=== PATIENT | female | born 2000 | race Two or more races ===

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

== ENCOUNTER → 2020-03-27 | Outpatient (CLI) | payer BC ==
[2020-03-27 14:10] LABS: Basophils # (auto) 0 10 ^3/uL (0-0.2); Basophils % (auto) 0.6 % (0.0-2.0); Eosinophils # (auto) 0.1 10 ^3/uL (0-0.8); Eosinophils % (auto) 1.9 % (0.0-7.0); Hematocrit 39.5 % (36.0-46.0); Hemoglobin 12.8 g/dL (12.2-16.2); Lymphocytes % (auto) 28.6 % (10.0-50.0); Mean Corpuscular Hemoglobin 28.6 pg (28.0-32.0); Mean Corpuscular Hgb Conc. 32.4 g/dL (32.0-36.0); Mean Corpuscular Volume 88.1 fL (80.0-100.0); Monocytes # (auto) 0.6 10 ^3/uL (0-1.3); Monocytes % (auto) 8.2 % (0.0-12.0); Neutrophils # (auto) 4.3 10 ^3/uL (1.6-8.6); Neutrophils % (auto) 60.7 % (37.0-80.0); Nucleated Red Blood Cells % 0.1 %; Platelet Count (auto) 235 10^3/uL (140-450); Red Blood Cells 4.48 10^6/uL (4.0-5.20); Red Cell Distribution Width 14.4 % (11.8-14.3); White Blood Cell 7.1 10^3/uL (4.4-10.8)
[2020-03-27 14:42] LABS: Calcium 8.3 mg/dL (8.5-10.1)
[2020-03-27 14:47] LABS: BUN/Creatinine Ratio 20.3; Bilirubin, Total 0.3 mg/dL (0.2-1.0); Total Protein 6.4 g/dL (6.4-8.2)
== END | disposition home or self-care (01) ==
LOC: LAB 13:54
PROVIDERS: ATTEND Physician Assistant
DX: Z01.89 Encounter for other specified special examinations (principal); L70.0 Acne vulgaris; R94.8 Abnormal results of function studies of other organs and systems; M92.51 Juvenile osteochondrosis of proximal tibia; E55.9 Vitamin D deficiency, unspecified; Z79.899 Other long term (current) drug therapy
CPT/HCPCS: 36415; 80053; 80061; 85025

== ENCOUNTER → 2021-11-20 | Outpatient (CLI) | payer BC | END | disposition home or self-care (01) | LOC: LAB 08:55 | PROVIDERS: ATTEND Obstetrics & Gynecology | DX: Z34.00 Encounter for supervision of normal first pregnancy, unspecified trimester (principal) | CPT/HCPCS: 36415; 84702 ==

== ENCOUNTER → 2021-12-20 | Outpatient (CLI) | payer BC ==
[2021-12-20 09:23] LABS: Basophils # (auto) 0 10 ^3/uL (0-0.2); Basophils % (auto) 0.6 % (0.0-2.0); Eosinophils # (auto) 0.1 10 ^3/uL (0-0.8); Eosinophils % (auto) 1.9 % (0.0-7.0); Hematocrit 40.5 % (36.0-46.0); Hemoglobin 13.2 g/dL (12.2-16.2); Lymphocytes # (auto) 2.1 10 ^3/uL (0.4-5.4); Mean Corpuscular Hemoglobin 28.5 pg (28.0-32.0); Mean Corpuscular Hgb Conc. 32.7 g/dL (32.0-36.0); Mean Corpuscular Volume 87.2 fL (80.0-100.0); Monocytes # (auto) 0.4 10 ^3/uL (0-1.3); Monocytes % (auto) 6.3 % (0.0-12.0); Neutrophils # (auto) 3.9 10 ^3/uL (1.6-8.6); Neutrophils % (auto) 59.2 % (37.0-80.0); Nucleated Red Blood Cells % 0.3 %; Red Blood Cells 4.65 10^6/uL (4.0-5.20); Red Cell Distribution Width 14.8 % (11.8-14.3); White Blood Cell 6.5 10^3/uL (4.4-10.8)
[2021-12-20 09:46] LABS: Cannabinoid Screen, Urine NEGATIVE (NEGATIVE)
[2021-12-20 09:49] LABS: Amphetamine Screen, Urine NEGATIVE (NEGATIVE); Barbiturate Scree,Urine NEGATIVE (NEGATIVE); Benzodiazephine Screen, Urine NEGATIVE (NEGATIVE); Cocaine Screen, Urine NEGATIVE (NEGATIVE); Opiate Scree,Urine NEGATIVE (NEGATIVE); Phencyclidine Screen, Urine NEGATIVE (NEGATIVE)
[2021-12-21 07:07] LABS: RPR Non Reactive (Non Reactive)
== END | disposition home or self-care (01) ==
LOC: LAB 08:42
PROVIDERS: ATTEND Obstetrics & Gynecology
DX: Z34.00 Encounter for supervision of normal first pregnancy, unspecified trimester (principal); Z31.430 Encounter of female for testing for genetic disease carrier status for procreative management; Z72.51 High risk heterosexual behavior
CPT/HCPCS: 36415; 80307; 83036; 84112; 84144; 84702; 85025; 86592; 86703; 86762; 86850; 86900; 86901; 87086; 87340

== ENCOUNTER → 2022-04-23 | Outpatient (CLI) | payer BC ==
[2022-04-23 07:04] LABS: Basophils # (auto) 0 10 ^3/uL (0-0.2); Basophils % (auto) 0.4 % (0.0-2.0); Eosinophils # (auto) 0.1 10 ^3/uL (0-0.8); Eosinophils % (auto) 1.7 % (0.0-7.0); Hematocrit 34.5 % (36.0-46.0); Hemoglobin 11.5 g/dL (12.2-16.2); Lymphocytes # (auto) 2.6 10 ^3/uL (0.4-5.4); Lymphocytes % (auto) 30.4 % (10.0-50.0); Mean Corpuscular Hgb Conc. 33.3 g/dL (32.0-36.0); Monocytes # (auto) 0.7 10 ^3/uL (0-1.3); Monocytes % (auto) 8.6 % (0.0-12.0); Neutrophils # (auto) 4.9 10 ^3/uL (1.6-8.6); Neutrophils % (auto) 58.9 % (37.0-80.0); Nucleated Red Blood Cells % 0.2 %; Red Blood Cells 3.83 10^6/uL (4.0-5.20); White Blood Cell 8.4 10^3/uL (4.4-10.8)
== END | disposition home or self-care (01) ==
LOC: LAB 06:33
PROVIDERS: ATTEND Obstetrics & Gynecology
DX: Z34.00 Encounter for supervision of normal first pregnancy, unspecified trimester (principal)
CPT/HCPCS: 36415; 82951; 85025

== ENCOUNTER 2022-06-20 16:45 | Observation (INO) | payer BC ==
[~2022-06-20] VITALS: Ht 165.1 cm; Wt 81.6 kg
[2022-06-20] MEDS ORDERED: LACTATED RINGER'S 1,000 ML IV ONE (17:45)
[2022-06-20] MEDS: TERBUTALINE SULFATE 1 MG/ML 1ML VIAL SC SCH ×3 (17:58→19:08)
[2022-06-20] MEDS ORDERED: NIFEdipine 10 MG CAP PO ONE (19:00)
[2022-06-20] MEDS ORDERED: PREN1TAB71 OR (19:47)
[2022-06-20] MEDS ORDERED: NIF10C PO (19:47)
== END 2022-06-20 20:07 | disposition home or self-care (01) ==
LOC: LDRP 16:45
PROVIDERS: ADMIT Obstetrics & Gynecology; ATTEND Obstetrics & Gynecology
DX: O62.9 Abnormality of forces of labor, unspecified (principal); O26.893 Other specified pregnancy related conditions, third trimester; N89.8 Other specified noninflammatory disorders of vagina; O24.419 Gestational diabetes mellitus in pregnancy, unspecified control; Z3A.35 35 weeks gestation of pregnancy; Z79.899 Other long term (current) drug therapy
CPT/HCPCS: 59025; 81002; 82948; 82962; 94760; 96360; 96372; G0378; J3105

== ENCOUNTER 2022-06-23 11:30 | Observation (INO) | payer BC ==
[~2022-06-23 11:30] MED LIST: NIF10C PO; PREN1TAB71 OR
== END 2022-06-23 13:32 | disposition home or self-care (01) ==
LOC: LDRP 11:30 → INTOOBSV 11:30
PROVIDERS: ADMIT Obstetrics & Gynecology; ATTEND Obstetrics & Gynecology
DX: O60.03 Preterm labor without delivery, third trimester (principal); O62.9 Abnormality of forces of labor, unspecified; O26.893 Other specified pregnancy related conditions, third trimester; R51.9 Headache, unspecified; N89.8 Other specified noninflammatory disorders of vagina; O24.419 Gestational diabetes mellitus in pregnancy, unspecified control; O99.891 Other specified diseases and conditions complicating pregnancy; M54.9 Dorsalgia, unspecified; Z3A.35 35 weeks gestation of pregnancy
CPT/HCPCS: 59025; 76818; 81002; 94760; G0378

== ENCOUNTER → 2022-06-25 | Outpatient (CLI) | payer BC ==
[2022-06-25 10:24] LABS: Basophils # (auto) 0 10 ^3/uL (0-0.2); Basophils % (auto) 0.4 % (0.0-2.0); Eosinophils # (auto) 0.1 10 ^3/uL (0-0.8); Eosinophils % (auto) 1.3 % (0.0-7.0); Hematocrit 38.6 % (36.0-46.0); Hemoglobin 12.4 g/dL (12.2-16.2); Lymphocytes # (auto) 2.2 10 ^3/uL (0.4-5.4); Lymphocytes % (auto) 32.5 % (10.0-50.0); Mean Corpuscular Hemoglobin 28.8 pg (28.0-32.0); Mean Corpuscular Hgb Conc. 32.2 g/dL (32.0-36.0); Mean Corpuscular Volume 89.5 fL (80.0-100.0); Monocytes # (auto) 0.6 10 ^3/uL (0-1.3); Monocytes % (auto) 8.8 % (0.0-12.0); Neutrophils # (auto) 3.8 10 ^3/uL (1.6-8.6); Nucleated Red Blood Cells % 0.1 %; Red Blood Cells 4.32 10^6/uL (4.0-5.20); Red Cell Distribution Width 14.7 % (11.8-14.3); White Blood Cell 6.7 10^3/uL (4.4-10.8)
[2022-06-26 06:15] LABS: RPR Non Reactive (Non Reactive)
== END | disposition home or self-care (01) ==
LOC: LAB 09:52
PROVIDERS: ATTEND Obstetrics & Gynecology
DX: Z34.00 Encounter for supervision of normal first pregnancy, unspecified trimester (principal); Z3A.00 Weeks of gestation of pregnancy not specified
CPT/HCPCS: 36415; 84112; 85025; 86592

== ENCOUNTER 2022-06-28 12:20 | Observation (INO) | payer BC ==
[2022-06-28] MEDS ORDERED: LACTATED RINGER'S 1,000 ML IV ONE (13:00)
[2022-06-28] MEDS: TERBUTALINE SULFATE 1 MG/ML 1ML VIAL SC SCH ×2 (13:13→13:55)
== END 2022-06-28 14:45 | disposition home or self-care (01) ==
LOC: UNDOADMOB 12:20 → LDRP 12:20
PROVIDERS: ADMIT Obstetrics & Gynecology; ATTEND Obstetrics & Gynecology
DX: O24.419 Gestational diabetes mellitus in pregnancy, unspecified control (principal); O62.9 Abnormality of forces of labor, unspecified; Z3A.36 36 weeks gestation of pregnancy
CPT/HCPCS: 59025; 81002; 82962; 94760; 96360; 96372; G0378; J3105; 96361

== ENCOUNTER 2022-06-30 19:02 | Observation (INO) | payer BC ==
[~2022-06-30] VITALS: Ht 165.1 cm; Wt 83.9 kg
== END 2022-06-30 21:19 | disposition home or self-care (01) ==
LOC: LDRP 19:02
PROVIDERS: ADMIT Obstetrics & Gynecology; ATTEND Obstetrics & Gynecology
DX: O24.419 Gestational diabetes mellitus in pregnancy, unspecified control (principal); O60.03 Preterm labor without delivery, third trimester; O42.913 Preterm premature rupture of membranes, unspecified as to length of time between rupture and onset of labor, third trimester; O26.893 Other specified pregnancy related conditions, third trimester; R51.9 Headache, unspecified; Z3A.36 36 weeks gestation of pregnancy
CPT/HCPCS: 59025; 76818; 81002; 82962; 94760; G0378

== ENCOUNTER 2022-07-04 08:04 | Observation (INO) | payer BC ==
[~2022-07-04] VITALS: Ht 165.1 cm; Wt 83.9 kg
== END 2022-07-04 09:57 | disposition home or self-care (01) ==
LOC: UNDOADMOB 08:04 → LDRP 08:04 → UNDODISOB 09:57
PROVIDERS: ADMIT Obstetrics & Gynecology; ATTEND Obstetrics & Gynecology
DX: O24.419 Gestational diabetes mellitus in pregnancy, unspecified control (principal); Z3A.37 37 weeks gestation of pregnancy
CPT/HCPCS: 59025; 76818; 81002; 82948; 82962; 94760; G0378

== ENCOUNTER 2022-07-07 18:15 | Observation (INO) | payer BC | END 2022-07-07 21:30 | disposition home or self-care (01) | LOC: LDRP 18:15 | PROVIDERS: ADMIT Obstetrics & Gynecology; ATTEND Obstetrics & Gynecology | DX: O99.891 Other specified diseases and conditions complicating pregnancy (principal); M54.9 Dorsalgia, unspecified; O42.92 Full-term premature rupture of membranes, unspecified as to length of time between rupture and onset of labor; Z3A.37 37 weeks gestation of pregnancy; Z79.899 Other long term (current) drug therapy | CPT/HCPCS: 59025; 81002; 82962; 84112; 94762; G0378; Q0114 ==

== ENCOUNTER 2022-07-09 09:02 | Observation (INO) | payer BC ==
[~2022-07-09] VITALS: Ht 165.1 cm; Wt 85.3 kg
[~2022-07-09 09:02] MED LIST changes: -NIF10C PO
== END 2022-07-09 12:07 | disposition home or self-care (01) ==
LOC: LDRP 09:02 → UNDOADMOB 09:02 → LDRP 09:17 → UNDODISOB 12:07
PROVIDERS: ADMIT Obstetrics & Gynecology; ATTEND Obstetrics & Gynecology
DX: O24.419 Gestational diabetes mellitus in pregnancy, unspecified control (principal); O62.9 Abnormality of forces of labor, unspecified; Z3A.38 38 weeks gestation of pregnancy; Z79.899 Other long term (current) drug therapy
CPT/HCPCS: 59025; 81002; 82948; 82962; 94760; G0378

== ENCOUNTER 2022-07-09 17:20 | Observation (INO) | payer BC ==
[~2022-07-09] VITALS: Ht 165 cm; Wt 65.8 kg
[2022-07-09] MEDS ORDERED: hydrOXYzine 25 MG TAB or CAP PO ONE (20:00)
== END 2022-07-09 22:44 | disposition home or self-care (01) ==
LOC: LDRP 17:20
PROVIDERS: ADMIT Obstetrics & Gynecology; ATTEND Obstetrics & Gynecology
DX: O62.9 Abnormality of forces of labor, unspecified (principal); Z3A.38 38 weeks gestation of pregnancy
CPT/HCPCS: 59025; 81002; 94762; G0378

== ENCOUNTER 2022-07-11 08:21 | Observation (INO) | payer BC | END 2022-07-11 09:44 | disposition home or self-care (01) | LOC: UNDOADMOB 08:21 → LDRP 08:21 | PROVIDERS: ADMIT Obstetrics & Gynecology; ATTEND Obstetrics & Gynecology | DX: O24.419 Gestational diabetes mellitus in pregnancy, unspecified control (principal); O62.9 Abnormality of forces of labor, unspecified; O34.63 Maternal care for abnormality of vagina, third trimester; N89.8 Other specified noninflammatory disorders of vagina; Z3A.38 38 weeks gestation of pregnancy | CPT/HCPCS: 59025; 76818; 81002; 82948; 82962; 94760; G0378 ==

== ENCOUNTER 2023-11-25 22:32 | Emergency (ER) | payer BC ==
[~2023-11-25] VITALS: Ht 165.1 cm; Wt 58.6 kg
[2023-11-25 23:12] LABS: Basophils # (auto) 0 10 ^3/uL (0-0.2); Basophils % (auto) 0.1 % (0.0-2.0); Eosinophils # (auto) 0.2 10 ^3/uL (0-0.8); Eosinophils % (auto) 2.1 % (0.0-7.0); Hematocrit 41.9 % (36.0-46.0); Hemoglobin 13.5 g/dL (12.2-16.2); Lymphocytes # (auto) 3.6 10 ^3/uL (0.4-5.4); Lymphocytes % (auto) 36.1 % (10.0-50.0); Mean Corpuscular Hemoglobin 28.7 pg (28.0-32.0); Mean Corpuscular Hgb Conc. 32.2 g/dL (32.0-36.0); Mean Corpuscular Volume 89.1 fL (80.0-100.0); Monocytes # (auto) 0.6 10 ^3/uL (0-1.3); Monocytes % (auto) 6.5 % (0.0-12.0); Neutrophils # (auto) 5.5 10 ^3/uL (1.6-8.6); Neutrophils % (auto) 55.2 % (37.0-80.0); Nucleated Red Blood Cells % 0.1 %; Red Blood Cells 4.71 10^6/uL (4.0-5.20); Red Cell Distribution Width 14.1 % (11.8-14.3); White Blood Cell 9.9 10^3/uL (4.4-10.8)
[2023-11-25 23:23] LABS: Urine Bacteria NONE SEEN /hpf (None Seen); Urine Blood Negative /uL (Negative); Urine Clarity Clear (Clear); Urine Color Yellow (Yellow); Urine Mucus FEW (None Seen); Urine Protein, UAD TRACE (Negative); Urine Specific Gravity 1.032 (1.001-1.035); Urine Urobilinogen Normal (Negative); Urine WBC <1 /hpf (0 - 5)
[2023-11-25 23:31] LABS: Albumin 4.2 g/dL (3.2-4.8); Alkaline Phosphatase 97 U/L (46-116); Anion Gap 6 (5-15); Aspartate Aminotransferase 12 U/L (13-40); BUN/Creatinine Ratio 21.9 (10.0-20.0); Blood Urea Nitrogen 14 mg/dL (9-23); Calcium 9.1 mg/dL (8.5-10.1); Carbon Dioxide 27 mmol/L (20-30); Chloride 109 mmol/L (98-107); Glucose 103 mg/dL (74-106); Potassium 3.9 mmol/L (3.5-5.1); Sodium 142 mmol/L (136-145)
[2023-11-25 23:32] LABS: Alanine Aminotransferase < 9 U/L (7-40); Bilirubin, Total 0.2 mg/dL (0.2-1.0); Total Protein 6.3 g/dL (5.7-8.2)
[2023-11-25 23:46] LABS: Lipase 35 U/L (12-53)
[2023-11-25] MEDS ORDERED: LOPE1TAB9 PO (23:49)
[2023-11-25] MEDS ORDERED: ZOFR4T PO (23:49)
[2023-11-26 00:05] VITALS: BP 128/61; PULSE 76; RESP 15; TEMP 98.3; O2SAT 97
== END 2023-11-26 00:06 | disposition home or self-care (01) ==
LOC: ER 22:32
DX: K52.9 Noninfective gastroenteritis and colitis, unspecified (principal); Z79.899 Other long term (current) drug therapy
CPT/HCPCS: 36415; 80053; 81001; 81025; 83690; 85025

== ENCOUNTER → 2024-10-11 | Outpatient (CLI) | payer BC ==
[~2024-10-11] MED LIST changes: +LOPE1TAB9 PO; +ZOFR4T PO
[2024-10-11 11:27] LABS: Urine Bacteria FEW /hpf (None Seen); Urine Blood Negative /uL (Negative); Urine Clarity Turbid (Clear); Urine Color Colorless (Yellow); Urine Mucus FEW (None Seen); Urine Protein, UAD Negative (Negative); Urine Specific Gravity 1.019 (1.001-1.035); Urine Urobilinogen Normal (Negative); Urine WBC 21 /hpf (0 - 5); Urine pH 5.5 (5.0-9.0)
[2024-10-11 11:31] LABS: Basophils # (auto) 0 10 ^3/uL (0-0.2); Basophils % (auto) 0.5 % (0.0-2.0); Eosinophils # (auto) 0.2 10 ^3/uL (0-0.8); Hematocrit 39.9 % (36.0-46.0); Hemoglobin 13.3 g/dL (12.2-16.2); Mean Corpuscular Hgb Conc. 33.3 g/dL (32.0-36.0); Monocytes # (auto) 0.5 10 ^3/uL (0-1.3); Monocytes % (auto) 7.3 % (0.0-12.0); Neutrophils # (auto) 3.8 10 ^3/uL (1.6-8.6); Neutrophils % (auto) 58.2 % (37.0-80.0); Platelet Count (auto) 229 10^3/uL (140-450); Red Blood Cells 4.44 10^6/uL (4.0-5.20); Red Cell Distribution Width 13.3 % (11.8-14.3); White Blood Cell 6.5 10^3/uL (4.4-10.8)
[2024-10-11 11:41] LABS: Alanine Aminotransferase 12 U/L (7-40); Alkaline Phosphatase 87 U/L (46-116); Anion Gap 5 (5-15); BUN/Creatinine Ratio 22.4 (10.0-20.0); Blood Urea Nitrogen 13 mg/dL (9-23); Calcium 9.1 mg/dL (8.7-10.4); Carbon Dioxide 27 mmol/L (20-31); Chloride 107 mmol/L (98-107); Glucose 96 mg/dL (74-106); LDL Cholesterol 92 mg/dL (< 100); Potassium 4.2 mmol/L (3.5-5.1); Sodium 139 mmol/L (136-145); Triglycerides 66 mg/dL (< 150)
[2024-10-11 11:42] LABS: Albumin 3.8 g/dL (3.2-4.8); Aspartate Aminotransferase < 8 U/L (13-40); Bilirubin, Total 0.5 mg/dL (0.2-1.0); Cholesterol 143 mg/dL (< 200); HDL Cholesterol 47 mg/dL (40-59); Total Protein 5.8 g/dL (5.7-8.2)
== END | disposition home or self-care (01) ==
LOC: LAB 10:26
PROVIDERS: ATTEND Nurse Practitioner Family
DX: Z00.01 Encounter for general adult medical examination with abnormal findings (principal); I10 Essential (primary) hypertension; Z68.32 Body mass index [BMI] 32.0-32.9, adult
CPT/HCPCS: 36415; 80053; 80061; 81001; 82043; 83036; 84443; 85025

== ENCOUNTER 2024-11-28 21:09 | Emergency (ER) | payer BC ==
[~2024-11-28] VITALS: Ht 165.1 cm; Wt 72.7 kg
--- NOTE | 2024-11-28 21:29 | ED.PDOC ---
GI ASSESSMENT HPI Comments 24 y.o female presents to the ED for a chief complaint of lower abdominal pain associated with nausea that started today. Patient mentions finding out positive test at home one week ago. Patient reports pain is constant, non radiating and has no modifying factors. She denies any vaginal bleeding, discharge, fever, chills, vomiting, back pain, dysuria, or frequency. Patient declined any medications while at the facility. Time Seen by MD: 21:33 Primary Care Provider: JOSIE Reviewed Notes: Nurses Notes, Medications, Allergies Allergies: Coded Allergies: NO KNOWN ALLERGIES (Unverified , 07/04/22) Home Meds Active Scripts Loperamide HCl (Loperamide HCl) 2 Mg Tab, 2 MG PO QID PRN, #12 TAB Prov:VARINDER MURDOCK 11/25/23 Ondansetron Odt 4MG Tab (ZOFRAN PO) 4 Mg Tb, 4 MG PO TID PRN, #20 TAB ODT TAB-DISSOLVE IN MOUTH, THEN SWALLOW Prov:VARINDER MURDOCK 11/25/23 Reported Medications Vit W/ Ferrous Fumara (PNV PLUS MULTIVI) Plus Tab, 1 OR DAILY, TAB 06/20/22 Information Source: Patient Mode of Arrival: Ambulatory Timing: Days Duration: Since onset Quality: Aching Vomitus: None Stool: Normal Severity: Moderate Recent: None Recent Hx of: Current Pain Location: Suprapubic Modifying Factors: Nothing Associated sign and symptoms: Nausea, Abdominal Pain Past Medical History PAST MEDICAL HISTORY: Denies Surgical History: Denies all surgeries MATH TUTOR History: No Pertinent MATH TUTOR History Family History Family History: No family hx of DM Social History Smoker: Non-Smoker Alcohol: Denies ETOH Use Drugs: Denies Drug Use Lives In: Home Constitutional: denies: chills, diaphoresis, fatigue, fever, malaise, sweats, weakness, others EENTM: denies: blurred vision, double vision, ear bleeding, ear discharge, ear drainage, ear pain, ear ringing, eye pain, eye redness, hearing loss, mouth pain, mouth swelling, nasal discharge, nose bleeding, nose congestion, nose pain, photophobia, tearing, throat pain, throat swelling, voice changes, others Respiratory: denies: cough, hemoptysis, orthopnea, SOB at rest, shortness of breath, SOB with excertion, stridor, wheezing, others Cardiovascular: denies: chest pain, dizzy spells, diaphoresis, Dyspnea on exertion, edema, irregular heart beat, left arm pain, lightheadedness, palpitations, PND, syncope, others Gastrointestinal: reports: abdominal pain, nausea; denies: abdomen distended, blood streaked bowels, constipated, diarrhea, dysphagia, difficulty swallowing, hematemesis, melena, poor appetite, poor fluid intake, rectal bleeding, rectal pain, vomiting, others Genitourinary: reports: ; denies: abnormal vagina bleeding, burning, dyspareunia, dysuria, flank pain, frequency, hematuria, incontinence, pain, vagina discharge, urgency, others Neurological: denies: dizziness, fainting, headache, left sided numbness, left sided weakness, numbness, paresthesia, pre-existing deficit, right sided numbness, right sided weakness, seizure, speech problems, tingling, tremors, weakness, others Musculoskeletal: denies: back pain, gout, joint pain, joint swelling, muscle pain, muscle stiffness, neck pain, others Integumetry: denies: bruises, change in color, change in hair/nails, dryness, laceration, lesions, lumps, rash, wounds, others Allergic/Immunocompromised: denies: Difficulty Healing, Frequent Infections, Hives, Itching, others Hematologic/Lymphatic: denies: anemia, blood clots, easy bleeding, easy bruising, swollen glands, others Endocrine: denies: excessive hunger, excessive sweating, excessive thirst, excessive urination, flushing, intolerance to cold, intolerance to heat, unexplained weight gain, unexplained weight loss, others Psychiatric: denies: anxiety, bipolar disorder, depression, hopeless, panic disorder, schizophrenia, sleepless, suicidal, others All Other Systems: Reviewed and Negative Physical Exam General Appearance: Moderate Distress (Symr-yi-[id number] distress due to pelvic pain concerns.), Normal HEENT: Normal ENT Inspection, Pharynx Normal, TMs Normal Neck: Full Range of Motion, Non-Tender, Normal, Normal Inspection Respiratory: Chest Non-Tender, Lungs Clear, No Accessory Muscle Use, No Respiratory Distress, Normal Breath Sounds Cardiovascular: No Edema, No JVD, No Murmur, No Gallop, Normal Peripheral Pulses, Regular Rate/Rhythm Breast Exam: Deferred Gastrointestinal: Other (Diffuse bilateral pelvic tenderness to palpation. No signs of trauma. No pulsatile masses. Abdomen was reasonably soft. Mild suprapubic tenderness.) Genitalia: Deferred Pelvic: Deferred Rectal: Deferred Extremities: No calf tenderness, Normal capillary refill, Normal inspection, Normal range of motion, Non-tender, No pedal edema Neurologic: Alert, No Motor Deficits, Normal Affect, Normal Mood, No Sensory Deficits Cerebellar Function: Normal Reflexes: Normal Skin: Dry, Normal Color, Warm Lymphatic: No Adenopathy Was a procedure done? Was a procedure done?: No GI differential Dx Differential Diagnosis: Inevitable , Missed , Threatened , UTI, X-Ray, Labs, Meds, VS Vital Signs Date Time Temp Pulse Resp B/P (MAP) Pulse Ox O2 Delivery O2 Flow Rate FiO2 11/28/24 21:13 97.6 89 18 129/83 (98) 99 Lab Test 11/28/24 21:47 11/28/24 21:20 Range/Units Beta HCG, Quantitative 1949.5 H 1.5-4.2 mIU/mL Urine Color Light-yellow Yellow Urine Clarity Turbid H Clear Urine pH 6.0 5.0-9.0 Urine Specific [place] 1.008 1.001-1.035 Urine Protein Negative Negative Urine Ketones Negative Negative Urine Blood Negative Negative /uL Urine Nitrite Negative Negative Urine Bilirubin Negative Negative Urine Urobilinogen Normal Negative mg/dL Urine Leukocyte Esterase 1+ Negative /uL Urine RBC <1 0 - 4 /hpf Urine WBC 4 0 - 5 /hpf Urine Squamous Epithelial Cells Few <5 /hpf Urine Bacteria Few H None Seen /hpf Urine Glucose Normal Normal mg/dL X-Ray, Labs, Meds, VS Comment All studies performed the ED were evaluated by me personally. Urinalysis confirmed a UTI. Advised patient utilize antibiotics as directed until completion. Patient was given her 1st dose tonight prior to discharge. Advised patient to follow up with her director cardiac for management of her early . Time of 1ST Reevaluation: 22:50 Reevaluation 1ST: Unchanged Consultation: PCP, harp regulator Patient Education/Counseling: Diagnosis, Treatment, Prognosis Family Education/Counseling: Diagnosis, Treatment, No Family Present Departure 1 Departure Time of Disposition: 22:51 Impression: Primary Impression: Urinary tract infection Disposition: 01 HOME / SELF CARE / HOMELESS Condition: Stable Additional Instructions: Advise utilizing antibiotics as directed until completion as well as Tylenol as needed for pain relief. e-Prescriptions Cephalexin (KEFLEX CAPSULE) 250 Mg Cp 1 CAP PO QID for 5 Days, #20 CAP Prov: DAYNA AYALA PAC 11/28/24 Ondansetron Odt 4MG Tab (ZOFRAN PO) 4 Mg Tb 4 MG PO Q6HP PRN, #20 TAB ODT TAB-DISSOLVE IN MOUTH, THEN SWALLOW Prov: DAYNA AYALA PAC 11/28/24 Acetaminophen (Acetaminophen) 500 Mg Tab 500 MG PO Q4HP PRN, #60 TAB Prov: DAYNA AYALA PAC 11/28/24 Cephalexin (KEFLEX CAPSULE) 250 Mg Cp 1 CAP PO QID for 5 Days, #20 CAP Prov: DAYNA AYALA PAC 11/28/24 Discharged With: Self, Friend Critical Care Note Critical Care Time?: No Stability Stability form required: No I personally scribed for DAYNA AYALA PAC ([email or web address]) on 11/28/24 at 21:28. Electronically submitted by Carisa Ventura ([facility]). I personally scribed for DAYNA AYALA PAC ([email or web address]) on 11/28/24 at 21:30. Electronically submitted by Carisa Ventura ([facility]). DAYNA AYALA PAC Nov 28, 2024 21:28
[2024-11-28 22:09] LABS: Urine Bacteria FEW /hpf (None Seen); Urine Blood Negative /uL (Negative); Urine Clarity Turbid (Clear); Urine Color Light-Yellow (Yellow); Urine Protein, UAD Negative (Negative); Urine Specific Gravity 1.008 (1.001-1.035); Urine Squamous Epithelial Cell FEW /hpf (<5); Urine Urobilinogen Normal (Negative); Urine WBC 4 /hpf (0 - 5)
[2024-11-28] MEDS ORDERED: CEPH250C PO (22:52)
[2024-11-28] MEDS ORDERED: ACET500T58 PO (22:53)
[2024-11-28] MEDS ORDERED: ZOFR4T PO (22:53)
[2024-11-28] MEDS: CEPHALEXIN 250 MG CAP PO ONE (23:01)
[2024-11-28 23:03] VITALS: BP 147/74; PULSE 83; RESP 19; TEMP 99.4; O2SAT 99
== END 2024-11-28 23:08 | disposition home or self-care (01) ==
LOC: ER 21:09 → EEVIPCON 21:09 → ER 23:06
DX: N39.0 Urinary tract infection, site not specified (principal); Z79.899 Other long term (current) drug therapy
CPT/HCPCS: 36415; 81001; 84702

== ENCOUNTER → 2024-12-01 | Outpatient (CLI) | payer BC ==
[~2024-12-01] MED LIST changes: +ACET500T58 PO; +CEPH250C PO
== END | disposition home or self-care (01) ==
LOC: LAB 09:20
PROVIDERS: ATTEND Obstetrics & Gynecology
DX: Z34.80 Encounter for supervision of other normal pregnancy, unspecified trimester (principal)
CPT/HCPCS: 36415; 84144; 84702

== ENCOUNTER → 2024-12-06 | Outpatient (CLI) | payer BC | END | disposition home or self-care (01) | LOC: LAB 11:23 | PROVIDERS: ATTEND Obstetrics & Gynecology | DX: Z34.80 Encounter for supervision of other normal pregnancy, unspecified trimester (principal); Z3A.13 13 weeks gestation of pregnancy | CPT/HCPCS: 36415; 84144; 84702 ==

== ENCOUNTER 2024-12-21 21:16 | Emergency (ER) | payer BC ==
[~2024-12-21] VITALS: Ht 165.1 cm; Wt 71.5 kg
[2024-12-21 22:16] VITALS: BP 113/68; PULSE 112; RESP 20; O2SAT 99
--- NOTE | 2024-12-21 22:36 | ED.PDOC ---
NEON GLASS [facility]OWER HPI Comments HPI: HPI: Poor Historian. 24y F who presents to the ED for chief complaint of nausea and vomiting nonbilious nonbloody for two weeks. Pt has the following course of events: - pt is currently 8 weeks , and states she has been having increasing nausea and vomiting over the past 2 weeks -pt states since last night PM, she has started to see blood in vomit and came for further evaluation. Patient is holding a vomit bag. I evaluated the rabia nt and there is no evidence of hemorrhage. - pt states she has tried promethazine and Phenergan and various other OTC nausea and vomiting medications but states pt continues to have symptoms - pt denies any associated vaginal bleeding or any related symptoms Past medical history:denies Past surgical history: unknown Social history: denies tobacco use, denies ETOH use, denies drug use Medications: unknown Allergies: denies REVIEW OF SYSTEMS: CONSTITUTIONAL: Denies acute: fever, diaphoresis, chills, generalized weakness. HEAD: Denies acute: headache, photophobia Eyes: Denies acute: Double vision, vision loss, eye pain, eye discharge. EARS: Denies acute: tinnitus, hearing loss, ear discharge, ear pain, THROAT: Denies acute: sore throat, swelling, difficulty swallowing , pain with swallowing, change in voice. NECK: Denies acute: neck pain, neck swelling, stiff neck. HEART: Denies acute : chest pain, palpitations, LUNGS: Denies acute: SOB, wheezing, cough, hemoptysis ABDOMEN: Denies acute: abdominal pain, diarrhea, melena , hematemesis, hematochezia SKIN: Denies acute: rash, redness, lesions, itchiness. EXTREMITIES: Denies acute: calf pain, numbness, tingling, weakness, denies pain in extremity. Denies acute: Low back pain. Neuro: Denies acute: focal neurological deficit, motor or sensory focal neurological deficit, tremors, seizure like activity, confusion, dizziness, change in mental status, loss of bowel or bladder function, cauda equina like symptoms. : Denies acute: dysuria, hematuria, flank pain, increase in urinary frequency. PSYCH: Denies acute: hallucination, suicidal ideation, homicidal ideation. FEMALE: Denies acute: abnormal vaginal bleeding, foul odor, unusual discharge. PHYSICAL EXAM: General: Mild acute distress, awake and alert. Head: normocephalic, atraumatic. Neck: supple, trachea is midline, no swelling. Throat: Normal phonation. Eyes:, no erythema, no purulent discharge, no proptosis, no icterus. Heart: regular rate, regular rhythm, no significant murmur appreciated. Lungs: no apparent respiratory distress, Able to speak in full sentences. No wheezing, no rhonchi, no crackles. No stridors Clear to auscultation bilaterally. Abdomen: non tender to palpation, non distended, soft, no guarding, no rebound, + bowel sounds. Neuro: Awake, Alert, oriented to name, self, situation, follows commands GCS=15. Speech is normal. Skin: no petechia, no purpura, no cyanosis, non-pale, not jaundice. Lower extremities: --no - Pitting edema no deformity, no focal swelling, no calf TTP. Makes eye contact. moves all four extremities. Face: no apparent facial droop. Ambulating in the ED independently. Chief Complaint: Nausea/Vomiting Time Seen by MD: 22:35 Reviewed Notes: Nurses Notes, Medications Allergies: Coded Allergies: NO KNOWN ALLERGIES (Unverified , 07/04/22) Home Meds Active Scripts Ondansetron Odt 4MG Tab (ZOFRAN PO) 4 Mg Tb, 4 MG PO Q8HPRN PRN for 3 Days, #9 TAB ODT TAB-DISSOLVE IN MOUTH, THEN SWALLOW Prov:VEE HENDERSON DO 12/22/24 Cephalexin Monohydrate (Cephalexin) 500 Mg Cap, 500 MG PO Q8HR for 5 Days, #15 CAP Prov:VEE HENDERSON DO 12/22/24 Cephalexin (KEFLEX CAPSULE) 250 Mg Cp, 1 CAP PO QID for 5 Days, #20 CAP Prov:DAYNA AYALA PAC 11/28/24 Ondansetron Odt 4MG Tab (ZOFRAN PO) 4 Mg Tb, 4 MG PO Q6HP PRN, #20 TAB ODT TAB-DISSOLVE IN MOUTH, THEN SWALLOW Prov:DAYNA AYALA PAC 11/28/24 Acetaminophen (Acetaminophen) 500 Mg Tab, 500 MG PO Q4HP PRN, #60 TAB Prov:DAYNA AYALA PAC 11/28/24 Cephalexin (KEFLEX CAPSULE) 250 Mg Cp, 1 CAP PO QID for 5 Days, #20 CAP Prov:DAYNA AYALA PAC 11/28/24 Loperamide HCl (Loperamide HCl) 2 Mg Tab, 2 MG PO QID PRN, #12 TAB Prov:VARINDER MURDOCK GROCERY DEPARTMENT MANAGER 11/25/23 Ondansetron Odt 4MG Tab (ZOFRAN PO) 4 Mg Tb, 4 MG PO TID PRN, #20 TAB ODT TAB-DISSOLVE IN MOUTH, THEN SWALLOW Prov:VARINDER MURDOCK GROCERY DEPARTMENT MANAGER 11/25/23 Reported Medications Vit W/ Ferrous Fumara (PNV PLUS MULTIVI) Plus Tab, 1 OR DAILY, TAB 06/20/22 Information Source: Patient Mode of Arrival: Ambulatory Brought in by: self Past Medical History PAST MEDICAL HISTORY: Denies Surgical History: Denies all surgeries BATTALION FIRE CHIEF History: No Pertinent BATTALION FIRE CHIEF History Family History Family History: No family hx of DM Social History Smoker: Non-Smoker Alcohol: Denies ETOH Use Drugs: Denies Drug Use Lives In: Home Was a procedure done? Was a procedure done?: No Differential Diagnosis (BATTALION FIRE CHIEF) Vaginal Bleeding: N/A Mass / Lesion: N/A Vaginal Discharge: N/A Comments Hyperemesis gravidarum, electrolyte abnormality, UTI, dehydration, infection X-Ray, Labs, Meds, VS Vital Signs Date Time Temp Pulse Resp B/P (MAP) Pulse Ox O2 Delivery O2 Flow Rate FiO2 12/21/24 22:16 98.0 112 20 113/68 (83) 99 Lab Test 12/21/24 22:46 12/21/24 22:10 Range/Units White Blood Count 11.3 H 4.4-10.8 10^3/uL Red Blood Count 4.93 4.0-5.20 10^6/uL Hemoglobin 14.6 12.2-16.2 g/dL Hematocrit 43.6 36.0-46.0 % Mean Corpuscular Volume 88.3 80.0-100.0 fL Mean Corpuscular Hemoglobin 29.5 28.0-32.0 pg Mean Corpuscular Hemoglobin Concent 33.4 32.0-36.0 g/dL Red Cell Distribution Width 13.3 11.8-14.3 % Platelet Count 261 140-450 10^3/uL Mean Platelet Volume 9.3 6.9-10.8 fL Neutrophils (%) (Auto) 81.9 H 37.0-80.0 % Lymphocytes (%) (Auto) 13.3 10.0-50.0 % Monocytes (%) (Auto) 4.2 0.0-12.0 % Eosinophils (%) (Auto) 0.1 0.0-7.0 % Basophils (%) (Auto) 0.5 0.0-2.0 % Neutrophils # (Auto) 9.3 H 1.6-8.6 10 ^3/uL Lymphocytes # (Auto) 1.5 0.4-5.4 10 ^3/uL Monocytes # (Auto) 0.5 0-1.3 10 ^3/uL Eosinophils # (Auto) 0 0-0.8 10 ^3/uL Basophils # (Auto) 0.1 0-0.2 10 ^3/uL Nucleated Red Blood Cells 0.1 % Sodium Level 136 136-145 mmol/L Potassium Level 3.9 3.5-5.1 mmol/L Chloride Level 99 98-107 mmol/L Carbon Dioxide Level 27 20-31 mmol/L Anion Gap 10 5-15 Blood Urea Nitrogen 9 9-23 mg/dL Creatinine 0.55 0.550-1.02 mg/dL Glomerular Filtration Rate Calc 130 >90 mL/min BUN/Creatinine Ratio 16.4 10.0-20.0 Serum Glucose 107 H 74-106 mg/dL Calcium Level 10.2 8.7-10.4 mg/dL Magnesium Level 2.1 1.6-2.6 mg/dL Total Bilirubin 0.4 0.2-1.0 mg/dL Aspartate Amino Transferase (AST) 13 13-40 U/L Alanine Aminotransferase (ALT) 17 7-40 U/L Alkaline Phosphatase 83 46-116 U/L Total Protein 7.1 5.7-8.2 g/dL Albumin 4.4 3.2-4.8 g/dL Urine Color Yellow Yellow Urine Clarity Turbid H Clear Urine pH 7.0 5.0-9.0 Urine Specific [place] 1.026 1.001-1.035 Urine Protein 1+ H Negative Urine Ketones 4+ H Negative Urine Blood Negative Negative /uL Urine Nitrite Negative Negative Urine Bilirubin Negative Negative Urine Urobilinogen Normal Negative mg/dL Urine Leukocyte Esterase 2+ Negative /uL Urine RBC 3 0 - 4 /hpf Urine Microscopic WBC 14 H 0-5 /HPF Urine Squamous Epithelial Cells Many <5 /hpf Urine Bacteria Many H None Seen /hpf Urine Mucus Few None Seen Urine Glucose Normal Normal mg/dL Time of 1ST Reevaluation: 03:15 (Patient eloped) Reevaluation 1ST: Patient Education/Counseling: Other Family Education/Counseling: No Family Present Comments Patient presented with the above HPI.---nausea and vomiting in ---workup was initiated. patient was found with the above mentioned diagnosis. the following medications were ordered: please refer to order lists of meds and tests obtained by myself Dr. Henderson. Patient ED course and VS have been stabilized. Patient has been reassessed in the ED and remained in a stable condition. Escalation of care considered: Consideration of escalation to observation or admission Patient eloped All the reports of any imaging studies that were ordered by myself were reviewed by myself. Departure 1 Departure Time of Disposition: 01:09 Impression: Primary Impression: UTI in Additional Impression: Nausea and vomiting during Disposition: LEFT AWOL/ELOPED Condition: Stable Additional Instructions: Patient eloped Additional discharge instructions: You MUST follow-up with your primary care/family doctor in 1 to 2 days. If you are unable to see your primary care/family doctor, please return to our emergency room for re-assessment and re-evaluation in 1 to 2 days. Return to the emergency room here in our facility or to the nearest ER [facility] if your symptoms change or worsen. CONSULTATIONS: you MUST Follow-up for consultation as soon as possible with: Dr. CARLIN Baron doctor in 1-2 days. Please call for appointment You MUST call the consultants office yourself to make an appointment. You may need to arrange that through your insurance and/or your primary/family doctor. If you are unable to see the excellence consultant in 1 to 2 days, you must return to our emergency room (or any other ER of your choice) for re-assessment and re- evaluation. Adequate fluid hydration. e-Prescriptions Ondansetron Odt 4MG Tab (ZOFRAN PO) 4 Mg Tb 4 MG PO Q8HPRN PRN for 3 Days, #9 TAB ODT TAB-DISSOLVE IN MOUTH, THEN SWALLOW Prov: VEE HENDERSON DO 12/22/24 Cephalexin Monohydrate (Cephalexin) 500 Mg Cap 500 MG PO Q8HR for 5 Days, #15 CAP Prov: VEE HENDERSON DO 12/22/24 Discharged With: Self Critical Care Note Critical Care Time?: No I personally scribed for VEE HENDERSON DO ([email or web address]) on 12/21/24 at 22:36. Electronically submitted by Salvatore Crespo ([facility]). VEE HENDERSON DO Dec 21, 2024 22:36
[2024-12-21] MEDS ORDERED: SODIUM CHLORIDE 0.9% 1,000 ML IV ONE (22:45)
[2024-12-21] MEDS ORDERED: ONDANSETRON HCL 4 MG/2 ML VIAL IV ONE (22:45)
[2024-12-21 23:09] LABS: Basophils # (auto) 0.1 10 ^3/uL (0-0.2); Basophils % (auto) 0.5 % (0.0-2.0); Eosinophils # (auto) 0 10 ^3/uL (0-0.8); Eosinophils % (auto) 0.1 % (0.0-7.0); Hematocrit 43.6 % (36.0-46.0); Hemoglobin 14.6 g/dL (12.2-16.2); Lymphocytes # (auto) 1.5 10 ^3/uL (0.4-5.4); Lymphocytes % (auto) 13.3 % (10.0-50.0); Mean Corpuscular Hemoglobin 29.5 pg (28.0-32.0); Mean Corpuscular Hgb Conc. 33.4 g/dL (32.0-36.0); Mean Corpuscular Volume 88.3 fL (80.0-100.0); Monocytes # (auto) 0.5 10 ^3/uL (0-1.3); Monocytes % (auto) 4.2 % (0.0-12.0); Neutrophils # (auto) 9.3 10 ^3/uL (1.6-8.6); Neutrophils % (auto) 81.9 % (37.0-80.0); Nucleated Red Blood Cells % 0.1 %; Platelet Count (auto) 261 10^3/uL (140-450); Red Blood Cells 4.93 10^6/uL (4.0-5.20); Red Cell Distribution Width 13.3 % (11.8-14.3); White Blood Cell 11.3 10^3/uL (4.4-10.8)
[2024-12-21 23:20] LABS: Alanine Aminotransferase 17 U/L (7-40); Albumin 4.4 g/dL (3.2-4.8); Alkaline Phosphatase 83 U/L (46-116); Anion Gap 10 (5-15); BUN/Creatinine Ratio 16.4 (10.0-20.0); Bilirubin, Total 0.4 mg/dL (0.2-1.0); Blood Urea Nitrogen 9 mg/dL (9-23); Calcium 10.2 mg/dL (8.7-10.4); Carbon Dioxide 27 mmol/L (20-31); Chloride 99 mmol/L (98-107); Magnesium 2.1 mg/dL (1.6-2.6); Potassium 3.9 mmol/L (3.5-5.1); Sodium 136 mmol/L (136-145); Total Protein 7.1 g/dL (5.7-8.2)
[2024-12-21 23:23] LABS: Aspartate Aminotransferase 13 U/L (13-40); Glucose 107 mg/dL (74-106)
[2024-12-22 00:50] LABS: Urine Bacteria MANY /hpf (None Seen); Urine Blood Negative /uL (Negative); Urine Clarity Turbid (Clear); Urine Color Yellow (Yellow); Urine Mucus FEW (None Seen); Urine Protein, UAD 1+ (Negative); Urine Specific Gravity 1.026 (1.001-1.035); Urine Squamous Epithelial Cell MANY /hpf (<5); Urine Urobilinogen Normal (Negative); Urine WBC 14 /HPF (0-5)
[2024-12-22] MEDS ORDERED: CEPH500C PO (01:10)
[2024-12-22] MEDS ORDERED: ZOFR4T PO (01:11)
[2024-12-22] MEDS ORDERED: cefTRIAXone 1GM/50ML D5W 50 ML IV ONE (01:15)
== END 2024-12-22 03:06 | disposition left against medical advice (07) ==
LOC: ER 21:16
DX: O23.41 Unspecified infection of urinary tract in pregnancy, first trimester (principal); N39.0 Urinary tract infection, site not specified; O21.8 Other vomiting complicating pregnancy; O21.1 Hyperemesis gravidarum with metabolic disturbance; Z3A.08 8 weeks gestation of pregnancy
CPT/HCPCS: 36415; 80053; 81001; 83735; 85025; 87086

== ENCOUNTER → 2025-01-19 | Outpatient (CLI) | payer BC ==
[~2025-01-19] MED LIST changes: +CEPH500C PO
[2025-01-19 10:17] LABS: Basophils # (auto) 0 10 ^3/uL (0-0.2); Basophils % (auto) 0.5 % (0.0-2.0); Eosinophils # (auto) 0.1 10 ^3/uL (0-0.8); Eosinophils % (auto) 1.6 % (0.0-7.0); Hematocrit 39.5 % (36.0-46.0); Hemoglobin 13.5 g/dL (12.2-16.2); Lymphocytes # (auto) 1.8 10 ^3/uL (0.4-5.4); Lymphocytes % (auto) 22.1 % (10.0-50.0); Mean Corpuscular Hemoglobin 29.9 pg (28.0-32.0); Mean Corpuscular Hgb Conc. 34.2 g/dL (32.0-36.0); Mean Corpuscular Volume 87.5 fL (80.0-100.0); Monocytes # (auto) 0.4 10 ^3/uL (0-1.3); Monocytes % (auto) 5.5 % (0.0-12.0); Neutrophils # (auto) 5.7 10 ^3/uL (1.6-8.6); Neutrophils % (auto) 70.3 % (37.0-80.0); Platelet Count (auto) 239 10^3/uL (140-450); Red Blood Cells 4.51 10^6/uL (4.0-5.20); White Blood Cell 8.1 10^3/uL (4.4-10.8)
[2025-01-20 06:07] LABS: RPR Non Reactive (Non Reactive)
[2025-01-20 23:07] LABS: Chlamydia Trachomatis, NAA Negative (Negative); Neisseria gonorrhoeae, NAA Negative (Negative)
== END | disposition home or self-care (01) ==
LOC: LAB 09:46
PROVIDERS: ATTEND Obstetrics & Gynecology
DX: Z34.80 Encounter for supervision of other normal pregnancy, unspecified trimester (principal); Z72.51 High risk heterosexual behavior; Z3A.00 Weeks of gestation of pregnancy not specified
CPT/HCPCS: 36415; 83036; 84144; 84702; 85025; 86592; 86703; 86762; 86850; 86900; 86901; 87086; 87340

== ENCOUNTER 2025-05-06 09:20 | Outpatient (CLI) | payer BC ==
[2025-05-06 09:47] LABS: Basophils # (auto) 0 10 ^3/uL (0-0.2); Eosinophils # (auto) 0.1 10 ^3/uL (0-0.8); Lymphocytes # (auto) 2.3 10 ^3/uL (0.4-5.4); Monocytes # (auto) 0.7 10 ^3/uL (0-1.3); Red Cell Distribution Width 15.3 % (11.8-14.3); White Blood Cell 8.8 10^3/uL (4.4-10.8)
[2025-05-06 09:49] LABS: Basophils % (auto) 0.3 % (0.0-2.0); Eosinophils % (auto) 1.6 % (0.0-7.0); Hemoglobin 10.1 g/dL (12.2-16.2); Lymphocytes % (auto) 26.3 % (10.0-50.0); Mean Corpuscular Hemoglobin 25.7 pg (28.0-32.0); Mean Corpuscular Hgb Conc. 32.5 g/dL (32.0-36.0); Mean Corpuscular Volume 79.2 fL (80.0-100.0); Monocytes % (auto) 7.4 % (0.0-12.0); Neutrophils # (auto) 5.6 10 ^3/uL (1.6-8.6); Neutrophils % (auto) 64.4 % (37.0-80.0); Platelet Count (auto) 238 10^3/uL (140-450); Red Blood Cells 3.91 10^6/uL (4.0-5.20)
== END 2025-05-06 17:00 | disposition home or self-care (01) ==
LOC: LAB 09:20
PROVIDERS: ATTEND Obstetrics & Gynecology
DX: Z34.81 Encounter for supervision of other normal pregnancy, first trimester (principal); Z3A.13 13 weeks gestation of pregnancy; Z79.899 Other long term (current) drug therapy
CPT/HCPCS: 36415; 82951; 83036; 85025

== ENCOUNTER 2025-05-30 12:22 | Observation (INO) | payer BC, OTHER ==
--- NOTE | 2025-05-30 22:48 | DVHDS2 ---
Discharge Summary Date of Admission May 30, 2025 at 12:31 Date of Discharge: May 30, 2025 Brief Hx & Hospital Course: 31 weeks numbs and tingling in hands Condition at Discharge: Good Final Diagnosis/Problems List 31 weeks reasuring heart tone and US Discharge Disposition: Home Discharge Instruct/Medications Diet: Regular Activity: No Restrictions, As Tolerated Follow Up/Referral: as scheduled. Scheduled Cephalexin (Keflex Capsule), 1 CAP PO QID Cephalexin (Keflex Capsule), 1 CAP PO QID Cephalexin Monohydrate (Cephalexin), 500 MG PO Q8HR Vit W/ Ferrous Fumara (Pnv Plus Multivi), 1 OR DAILY, (Reported) Scheduled PRN Acetaminophen (Acetaminophen), 500 MG PO Q4HP PRN Loperamide HCl (Loperamide HCl), 2 MG PO QID PRN Ondansetron Odt 4MG Tab (Zofran Po), 4 MG PO TID PRN Ondansetron Odt 4MG Tab (Zofran Po), 4 MG PO Q6HP PRN Ondansetron Odt 4MG Tab (Zofran Po), 4 MG PO Q8HPRN PRN Discharge Statement: "Patient was advised to return to the ER or call 911 if any headaches, dizziness, shortness of breath, chest pain, abdominal pain, bleeding, fevers, or worsening of medical condition. Patient was counseled about treatment plan, medications, possible side effects, patientverbalized understanding. All questions were answered to the best of my ability. This discharge took greater then 30 minutes in planning, reviewing documentation, counseling the patient, and discussing with other team members." ASSESSMENT ASSESSMENT Assessment Visit Coding OBGYN Date of Service: May 30, 2025 Billing Provider: DAGO GONZALEZ DO SHEET METAL ENGINEER Common Visit Codes: 76252-QZVOGPNPQY INP/OBS CARE(HIGH), 70765-MLV/OBS SAME DATE (LOW), 44496-YJX/OBS SAME DATE (MOD) SHEET METAL ENGINEER Procedure Codes: 80813-12- NON-STRESS TEST DAGO GONZALEZ DO May 30, 2025 22:48
== END 2025-05-30 13:35 | disposition home or self-care (01) ==
LOC: UNDOADMOB 12:22 → LDRP 12:22 → UNDODISOB 13:35
PROVIDERS: ADMIT Obstetrics & Gynecology; ATTEND Obstetrics & Gynecology
DX: O26.893 Other specified pregnancy related conditions, third trimester (principal); M79.89 Other specified soft tissue disorders; R20.2 Paresthesia of skin; Z3A.31 31 weeks gestation of pregnancy; Z79.899 Other long term (current) drug therapy
CPT/HCPCS: 59025; 81002; 94760; G0378

== ENCOUNTER 2025-06-09 05:37 | Observation (INO) | payer BC, OTHER ==
--- NOTE | 2025-06-09 11:13 | DVH ---
BIOPHYSICAL PROFILE HISTORY: macrosomia TECHNIQUE: Multiple transabdominal real-time grayscale sonographic images through the gravid uterus of the fetus with duplex Doppler color flow and M-mode spectral analysis FINDINGS: BIOPHYSICAL PROFILE: breathing score: 2 movement score: 2 tone score: 2 Quantitative EZEKIEL score: 2 (EZEKIEL: 16.8 Cm.) Total score: 8 The cervix not well visualized Single live fetus in cephalic presentation. heart rate 150 beats per minute. Grade 1 anterior placenta without previa or abruption IMPRESSION: Biophysical profile score: 8
--- NOTE | 2025-06-10 15:21 | DVHDS2 ---
Physician Discharge Progress N Final Diagnosis: Macrosomia 32wks Operations or Procedures: Operations or Procedures nst reactive reviwed,sono Condition on Discharge: Good Disposition: Home Discharge Instructions: Diet: Regular Activity: No Restrictions, As Tolerated Follow Up/Referral: Weekly NST Medications: na Follow Up Care: Specialist: 1w Discharge Statement: "Patient was advised to return to the ER or call 911 if any headaches, dizziness, shortness of breath, chest pain, abdominal pain, bleeding, fevers, or worsening of medical condition. Patient was counseled about treatment plan, medications, possible side effects, patientverbalized understanding. All questions were answered to the best of my ability. This discharge took greater then 30 minutes in planning, reviewing documentation, counseling the patient, and discussing with other team members." Visit Coding OBGYN Date of Service: Jun 09, 2025 Billing Provider: SANJUANITA HUTTON DO TELEVISION PRODUCTION TECHNICIAN Common Visit Codes: 67304-HEYOALN OBS CARE (HIGH) TELEVISION PRODUCTION TECHNICIAN Procedure Codes: 78404-30- NON-STRESS TEST SANJUANITA HUTTON DO Jun 10, 2025 15:21
== END 2025-06-09 11:30 | disposition home or self-care (01) ==
LOC: UNDOADMOB 10:08 → LDRP 10:08
PROVIDERS: ADMIT Obstetrics & Gynecology; ATTEND Obstetrics & Gynecology
DX: O36.63X0 Maternal care for excessive fetal growth, third trimester, not applicable or unspecified (principal); Z3A.32 32 weeks gestation of pregnancy; Z79.899 Other long term (current) drug therapy
CPT/HCPCS: 76818; 81002; G0378; 59025; 76819

== ENCOUNTER 2025-06-14 00:50 | Observation (INO) | payer BC, OTHER ==
[~2025-06-14] VITALS: Ht 165.1 cm; Wt 89.4 kg
--- NOTE | 2025-06-14 14:30 | DVH ---
BIOPHYSICAL PROFILE HISTORY: Macrosomia Comparison Study: US BIOPHYSICAL PROFILE on DOS: 06/09/25, BIOPHYSICAL PROFILE on DOS: 07/11/22, BPP on DOS: 07/11/22, BIOPHYSICAL PROFILE on DOS: 07/04/22, BIOPHYSICAL PROFILE on DOS: 06/30/22 TECHNIQUE: Multiple real-time grayscale sonographic images through the gravid uterus of the fetus wi th duplex Doppler color flow and M-mode spectral analysis FINDINGS: BIOPHYSICAL PROFILE: breathing score: 2 movement score: 2 tone score: 2 Quantitative EZEKIEL score: 2 (EZEKIEL: 18.5 Cm.) Total score: 8 The cervix is not visualied Single live fetus in cephalic presentation. heart rate 148 beats per minute. Anterior placenta without previa or abruption IMPRESSION: Biophysical profile score: 8
--- NOTE | 2025-06-14 14:36 | DVHDS2 ---
Physician Discharge Progress N Final Diagnosis: testing for macrosomia Operations or Procedures: Operations or Procedures 24yo IUP@33.1wks, +FM, denies Ucs/VB. Pt c/o itching all over her body, denies palms and soles of feet. Pt does not drink a lot of water because she does not want to keep peeing. VSS NST reactive RN reports no bumps or rash on pts skin FKC/PTL precautions reviewed. Recommended oatmeal bath and coconut oil on skin after and to drink 1 gallon of water daily. Other Interventions Other Interventions [place] [address] Ph: [phone] DIAGNOSTIC IMAGING Diagnostic Imaging Report : [id number] Signed PATIENT: GALE OH ACCT: [id number] UNIT: [id number] : 2000 LOC: [facility] ROOM / BED: [place] [id number] / A AGE / SEX: 24 / F ADM STATUS: ADM IN SERVICE 1311 ORDERING PHYSICIAN: JOSE DANIEL CARRILLO CNM PROCEDURE(s): BPP - BIOPHYSICAL PROFILE REASON: Macrosomia ORDER NUMBER(s): [id number], ACCESSION NUMBER(s): [id number] BIOPHYSICAL PROFILE HISTORY: Macrosomia Comparison Study: US BIOPHYSICAL PROFILE on DOS: 06/09/25, BIOPHYSICAL PROFILE on DOS: 07/11/22, BPP on DOS: 07/11/22, BIOPHYSICAL PROFILE on DOS: 07/04/22, BIOPHYSICAL PROFILE on DOS: 06/30/22 TECHNIQUE: Multiple real-time grayscale sonographic images through the gravid uterus of the fetus with duplex Doppler color flow and M-mode spectral analysis FINDINGS: BIOPHYSICAL PROFILE: breathing score: 2 movement score: 2 tone score: 2 Quantitative EZEKIEL score: 2 (EZEKIEL: 18.5 Cm.) Total score: 8 The cervix is not visualied Single live fetus in cephalic presentation. heart rate 148 beats per minute. Anterior placenta without previa or abruption IMPRESSION: Biophysical profile score: 8 ATED BY: SHIMON BORRERO MD DICTATED DATE/TIME: 06/14/251427 SIGNED BY: SHIMON BORRERO MD SIGNED DATE/TIME: 06/14/251427 CC: Condition on Discharge: Stable Disposition: Home Discharge Instructions: Diet: Regular Activity: No Restrictions, As Tolerated Medications: see med list Follow Up Care: Specialist: f/u in 1 wk Discharge Statement: "Patient was advised to return to the ER or call 911 if any headaches, dizziness, shortness of breath, chest pain, abdominal pain, bleeding, fevers, or worsening of medical condition. Patient was counseled about treatment plan, medications, possible side effects, patientverbalized understanding. All questions were answered to the best of my ability. This discharge took greater then 30 minutes in planning, reviewing documentation, counseling the patient, and discussing with other team members." Visit Coding OBGYN Date of Service: Jun 14, 2025 Billing Provider: JOSE DANIEL CARRILLO CNM HOME HEALTH SCHEDULER Common Visit Codes: 33599-CAMIZSF OBS CARE (HIGH) HOME HEALTH SCHEDULER Procedure Codes: 10479-58- NON-STRESS TEST JOSE DANIEL CARRILLO CNM Jun 14, 2025 14:36
== END 2025-06-14 14:34 | disposition home or self-care (01) ==
LOC: UNDOADMOB 13:00 → LDRP 13:00
PROVIDERS: ADMIT Obstetrics & Gynecology; ATTEND Obstetrics & Gynecology
DX: O36.63X0 Maternal care for excessive fetal growth, third trimester, not applicable or unspecified (principal); Z98.890 Other specified postprocedural states; Z79.899 Other long term (current) drug therapy; Z3A.33 33 weeks gestation of pregnancy
CPT/HCPCS: 76818; 81002; 94760; G0378; 59025; 76819

== ENCOUNTER 2025-06-22 07:35 | Observation (INO) | payer BC, OTHER ==
--- NOTE | 2025-06-24 13:50 | DVH ---
BIOPHYSICAL PROFILE HISTORY: macro TECHNIQUE: Multiple real-time grayscale sonographic images through the gravid uterus of the fetus wi th duplex Doppler color flow. FINDINGS: BIOPHYSICAL PROFILE: breathing score: 2 movement score: 2 tone score: 2 Quantitative EZEKIEL score: 2 Total score: 8 out of 8 Single live intrauterine . heart rate 149 beats per minute. Placenta is anteriorly positioned. Cephalic lie. EZEKIEL 18.3 cm IMPRESSION: Biophysical profile score: 8 out of 8
[2025-06-24 13:55] LABS: Hematocrit 29.8 % (36.0-46.0); Hemoglobin 9.4 g/dL (12.2-16.2); Mean Corpuscular Hemoglobin 22.8 pg (28.0-32.0); Mean Corpuscular Volume 72.4 fL (80.0-100.0); Nucleated Red Blood Cells % 0.1 %
[2025-06-24 14:12] LABS: Albumin 3.6 g/dL (3.2-4.8); Anion Gap 11 (5-15); Bilirubin, Total 0.4 mg/dL (0.2-1.0); Carbon Dioxide 22 mmol/L (20-31); Sodium 140 mmol/L (136-145); Total Protein 5.7 g/dL (5.7-8.2)
[2025-06-24 14:13] LABS: Alanine Aminotransferase 9 U/L (7-40); Alkaline Phosphatase 162 U/L (46-116); BUN/Creatinine Ratio 11.9 (10.0-20.0); Blood Urea Nitrogen < 5 mg/dL (9-23); Calcium 8.6 mg/dL (8.7-10.4); Chloride 107 mmol/L (98-107); Glucose 119 mg/dL (74-106); Potassium 3.3 mmol/L (3.5-5.1)
--- NOTE | 2025-06-24 14:47 | DVHDS2 ---
Physician Discharge Progress N Final Diagnosis: cholestasis 34wks Operations or Procedures: Operations or Procedures nst reactive reviwed,sono Condition on Discharge: Good Disposition: Home Discharge Instructions: Diet: Regular Activity: No Restrictions, As Tolerated Medications: actigal Follow Up Care: Specialist: 2d Discharge Statement: "Patient was advised to return to the ER or call 911 if any headaches, dizziness, shortness of breath, chest pain, abdominal pain, bleeding, fevers, or worsening of medical condition. Patient was counseled about treatment plan, medications, possible side effects, patientverbalized understanding. All questions were answered to the best of my ability. This discharge took greater then 30 minutes in planning, reviewing documentation, counseling the patient, and discussing with other team members." Visit Coding OBGYN Date of Service: Jun 24, 2025 Billing Provider: SANJUANITA HUTTON DO CIVIL CAD DESIGNER Common Visit Codes: 75906-[id number] OBS CARE (HIGH) CIVIL CAD DESIGNER Procedure Codes: 31382-83- NON-STRESS TEST SANJUANITA HUTTON DO Jun 24, 2025 14:47
== END 2025-06-24 15:10 | disposition home or self-care (01) ==
LOC: LDRP 06-24 12:25
PROVIDERS: ADMIT Obstetrics & Gynecology; ATTEND Obstetrics & Gynecology
DX: O26.643 Intrahepatic cholestasis of pregnancy, third trimester (principal); K83.1 Obstruction of bile duct; Z3A.34 34 weeks gestation of pregnancy; Z98.890 Other specified postprocedural states; Z79.899 Other long term (current) drug therapy
CPT/HCPCS: 36415; 76818; 80053; 81002; 85025; G0378; 59025; 76819

== ENCOUNTER 2025-06-27 06:35 | Observation (INO) | payer BC, OTHER ==
--- NOTE | 2025-06-27 09:07 | DVH ---
BIOPHYSICAL PROFILE HISTORY: Macro/Toya TECHNIQUE: Multiple transabdominal real-time grayscale sonographic images through the gravid uterus of the fetus with duplex Doppler color flow and M-mode spectral analysis FINDINGS: BIOPHYSICAL PROFILE: breathing score: 2 movement score: 2 tone score: 2 Quantitative EZEKIEL score: 2 (EZEKIEL: 17.3 Cm.) Total score: 8 The cervix not well visualized Single live fetus in cephalic presentation. heart rate 145 beats per minute. Anterior placenta without previa or abruption IMPRESSION: Biophysical profile score: 8
[2025-06-27] MEDS ORDERED: URSO300C2 PO (09:16)
--- NOTE | 2025-06-27 12:25 | DVHDS2 ---
Physician Discharge Progress N Final Diagnosis: cholestasis of preg 35wks Operations or Procedures: Operations or Procedures nst reactive reviwed,sono Condition on Discharge: Good Disposition: Home Discharge Instructions: Diet: Regular Activity: No Restrictions, As Tolerated Medications: inc actigal tid Follow Up Care: Specialist: 3d Discharge Statement: "Patient was advised to return to the ER or call 911 if any headaches, dizziness, shortness of breath, chest pain, abdominal pain, bleeding, fevers, or worsening of medical condition. Patient was counseled about treatment plan, medications, possible side effects, patientverbalized understanding. All questions were answered to the best of my ability. This discharge took greater then 30 minutes in planning, reviewing documentation, counseling the patient, and discussing with other team members." Visit Coding OBGYN Date of Service: Jun 27, 2025 Billing Provider: SANJUANITA HUTTON DO DIRECTOR OF MEDIA Common Visit Codes: 58429-IHIUYMM OBS CARE (HIGH) DIRECTOR OF MEDIA Procedure Codes: 56748-22- NON-STRESS TEST SANJUANITA HUTTON DO Jun 27, 2025 12:25
== END 2025-06-27 09:33 | disposition home or self-care (01) ==
LOC: LDRP 08:07
PROVIDERS: ADMIT Obstetrics & Gynecology; ATTEND Obstetrics & Gynecology
DX: O26.643 Intrahepatic cholestasis of pregnancy, third trimester (principal); K83.1 Obstruction of bile duct; Z3A.35 35 weeks gestation of pregnancy; Z98.890 Other specified postprocedural states; Z79.899 Other long term (current) drug therapy
CPT/HCPCS: 76818; 81002; 94760; G0378; 59025; 76819

== ENCOUNTER 2025-06-30 10:30 | Observation (INO) | payer BC, OTHER ==
[~2025-06-30 10:30] MED LIST changes: +URSO300C2 PO
--- NOTE | 2025-06-30 11:23 | DVH ---
BIOPHYSICAL PROFILE HISTORY: MACRO/WALI Comparison Study: US BIOPHYSICAL PROFILE on DOS: 06/27/25, US BIOPHYSICAL PROFILE on DOS: 06/24/25, US B IOPHYSICAL PROFILE on DOS: 06/14/25, US BIOPHYSICAL PROFILE on DOS: 06/09/25, BIOPHYSICAL PROFILE on DO S: 07/11/22 TECHNIQUE: Multiple real-time grayscale sonographic images through the gravid uterus of the fetus wi th duplex Doppler color flow and M-mode spectral analysis FINDINGS: BIOPHYSICAL PROFILE: breathing score: 2 movement score: 2 tone score: 2 Quantitative EZEKIEL score: 2 (EEZKIEL: 17.1 Cm.) Total score: 8 The cervix is not visualized Single live fetus in cephalic presentation. heart rate 150 beats per minute. Anterior placenta without previa or abruption IMPRESSION: Biophysical profile score: 8
--- NOTE | 2025-07-01 13:56 | DVHDS2 ---
Physician Discharge Progress N Final Diagnosis: cholestasis of preg,macrosomia Operations or Procedures: Operations or Procedures nst reactive reviwed,sono Condition on Discharge: Good Disposition: Home Discharge Instructions: Diet: Regular Activity: Light activity Medications: na Follow Up Care: Specialist: 3d Discharge Statement: "Patient was advised to return to the ER or call 911 if any headaches, dizziness, shortness of breath, chest pain, abdominal pain, bleeding, fevers, or worsening of medical condition. Patient was counseled about treatment plan, medications, possible side effects, patientverbalized understanding. All questions were answered to the best of my ability. This discharge took greater then 30 minutes in planning, reviewing docu mentation, counseling the patient, and discussing with other team members." Visit Coding OBGYN Date of Service: Jun 30, 2025 Billing Provider: SANJUANITA HUTTON DO FLOUR INSPECTOR Common Visit Codes: 07353-XDHUTDT OBS CARE (HIGH) FLOUR INSPECTOR Procedure Codes: 43467-75- NON-STRESS TEST SANJUANITA HUTTON DO Jul 01, 2025 13:56
== END 2025-06-30 11:56 | disposition home or self-care (01) ==
LOC: UNDOADMOB 10:30 → LDRP 10:30
PROVIDERS: ADMIT Obstetrics & Gynecology; ATTEND Obstetrics & Gynecology
DX: O26.643 Intrahepatic cholestasis of pregnancy, third trimester (principal); K83.1 Obstruction of bile duct; Z3A.35 35 weeks gestation of pregnancy; Z98.890 Other specified postprocedural states; Z79.899 Other long term (current) drug therapy
CPT/HCPCS: 76818; 81002; G0378; 59025; 76819

== ENCOUNTER 2025-07-04 11:16 | Observation (INO) | payer BC, OTHER ==
--- NOTE | 2025-07-04 12:09 | DVH ---
CLINICAL HISTORY: Cholestasis. Macrosomia. COMPARISON: US BIOPHYSICAL PROFILE on DOS: 06/30/25, US BIOPHYSICAL PROFILE on DOS: 06/27/25, US BIOPHY SICAL PROFILE on DOS: 06/24/25 TECHNIQUE: biophysical profile was performed. Transabdominal sonographic images of the fetus we re obtained. FINDINGS: The fetus is in cephalic position. heart rate measures 145 BPM. Amniotic fluid index measures 15.3 cm. The placenta is anterior in position without visualized evidence for previa or abru ption. BPP profile is an overall score of 8/8, with 2/2 points for breathing, with at least one episode of breathing over a 30 second duration during a 30 minute observation, 2/2 points for m ovements, with 3 or more discrete body or limb movements, 2/2 points for tone, with one or more episodes of extremity extension with return to flexion, or opening and closing of hand, and 2/ 2 points for amniotic fluid, with at least 1 pocket of amniotic fluid that measures 2 cm in 2 perpend icular planes. IMPRESSION: BPP score of 8/8.
--- NOTE | 2025-07-04 16:19 | DVHDS2 ---
Physician Discharge Progress N Final Diagnosis: Cholestasis of preg Secondary Diagnosis: Encounter for NST/BPP Operations or Procedures: Operations or Procedures NST/BPP EZEKIEL all WNL Consultations: Consultations PATIENT: GALE OH ACCT: [id number] UNIT: [id number] : 2000 LOC: [facility] ROOM / BED: [address] AGE / SEX: 25 / F ADM STATUS: ADM IN SERVICE 1122 ORDERING PHYSICIAN: JIMMIE WILCOX DO PROCEDURE(s): BPP - BIOPHYSICAL PROFILE REASON: WALI/MACRO ORDER NUMBER(s): [id number], ACCESSION NUMBER(s): [id number] CLINICAL HISTORY: Cholestasis. Macrosomia. COMPARISON: US BIOPHYSICAL PROFILE on DOS: 06/30/25, US BIOPHYSICAL PROFILE on DOS: 06/27/25, US BIOPHYSICAL PROFILE on DOS: 06/24/25 TECHNIQUE: biophysical profile was performed. Transabdominal sonographic images of the fetus were obtained. FINDINGS: The fetus is in cephalic position. heart rate measures 145 BPM. Amniotic fluid index measures 15.3 cm. The placenta is anterior in position without visualized evidence for previa or abruption. BPP profile is an overall score of 8/8, with 2/2 points for breathing, with at least one episode of breathing over a 30 second duration during a 30 minute observation, 2/2 points for movements, with 3 or more discrete body or limb movements, 2/2 points for tone, with one or more episodes of extremity extension with return to flexion, or opening and closing of hand, and 2/2 points for amniotic fluid, with at least 1 pocket of amniotic fluid that measures 2 cm in 2 perpendicular planes. IMPRESSION: BPP score of 8/8. ATED BY: SWAPNIL BARBER DO DICTATED DATE/TIME: 07/04/25 1206 Condition on Discharge: Stable Disposition: Home Discharge Instructions: Diet: Regular Activity: No Restrictions, As Tolerated Follow Up/Referral: as scheduled Medications: NA Follow Up Care: Discharge Statement: "Patient was advised to return to the ER or call 911 if any headaches, dizziness, shortness of breath, chest pain, abdominal pain, bleeding, fevers, or worsening of medical condition. Patient was counseled about treatment plan, medications, possible side effects, patientverbalized understanding. All questions were answered to the best of my ability. This discharge took greater then 30 minutes in planning, reviewing documentation, counseling the patient, and discussing with other team members." Visit Coding OBGYN Date of Service: Jul 04, 2025 Billing Provider: JIMMIE WILCOX DO CLINICAL TECHNOLOGIST Common Visit Codes: 03622-YJA/OBS SAME DATE (MOD) CLINICAL TECHNOLOGIST Procedure Codes: 16606-31- NON-STRESS TEST JIMMIE WILCOX DO Jul 04, 2025 16:19
== END 2025-07-04 12:17 | disposition home or self-care (01) ==
LOC: LDRP 11:16 → UNDOADMOB 11:16 → LDRP 11:23 → UNDODISOB 12:17
PROVIDERS: ADMIT Obstetrics & Gynecology; ATTEND Obstetrics & Gynecology
DX: O26.643 Intrahepatic cholestasis of pregnancy, third trimester (principal); K83.1 Obstruction of bile duct; Z3A.35 35 weeks gestation of pregnancy; Z98.890 Other specified postprocedural states
CPT/HCPCS: 76818; 81002; G0378; 59025; 76819

== ENCOUNTER 2025-07-07 08:05 | Observation (INO) | payer BC, OTHER ==
[2025-07-07 08:56] LABS: Hematocrit 33.0 % (36.0-46.0); Hemoglobin 10.3 g/dL (12.2-16.2)
[2025-07-07 08:57] LABS: Mean Corpuscular Hemoglobin 23.2 pg (28.0-32.0); Mean Corpuscular Volume 74.7 fL (80.0-100.0); Nucleated Red Blood Cells % 0.2 %
[2025-07-07 09:07] LABS: Albumin 3.8 g/dL (3.2-4.8); Anion Gap 11 (5-15); Calcium 8.9 mg/dL (8.7-10.4); Carbon Dioxide 21 mmol/L (20-31); Glucose 85 mg/dL (74-106); Potassium 3.7 mmol/L (3.5-5.1); Sodium 139 mmol/L (136-145); Total Protein 6.0 g/dL (5.7-8.2)
[2025-07-07 09:08] LABS: Alanine Aminotransferase < 9 U/L (7-40); Alkaline Phosphatase 154 U/L (46-116); BUN/Creatinine Ratio 11.4 (10.0-20.0); Bilirubin, Total 0.5 mg/dL (0.2-1.0); Blood Urea Nitrogen < 5 mg/dL (9-23); Chloride 107 mmol/L (98-107)
--- NOTE | 2025-07-07 09:22 | DVH ---
BIOPHYSICAL PROFILE HISTORY: Toya/Macro TECHNIQUE: Multiple transabdominal real-time grayscale sonographic images through the gravid uterus of the fetus with duplex Doppler color flow and M-mode spectral analysis FINDINGS: BIOPHYSICAL PROFILE: breathing score: 2 movement score: 2 tone score: 2 Quantitative EZEKIEL score: 2 (EZEKIEL: 21.8 Cm.) Total score: 8 The cervix Single live fetus in cephalic presentation. heart rate 141 beats per minute. Grade III anterior placenta without previa or abruption IMPRESSION: Single live intrauterine , estimated gestational age by ultrasound biophysical profile. heart rate is 141 beats per minute. Amniotic fluid index is 21.8 cm. Cephalic presentation. Grade III anterior placenta without previa or abruption.
--- NOTE | 2025-07-08 14:08 | DVHDS2 ---
Physician Discharge Progress N Final Diagnosis: cholestasis of preg 36wks Operations or Procedures: Operations or Procedures nst reactive reviwed,sono Condition on Discharge: Good Disposition: Home Discharge Instructions: Diet: Regular Activity: No Restrictions, As Tolerated Medications: na Follow Up Care: Specialist: 3d for induction Discharge Statement: "Patient was advised to return to the ER or call 911 if any headaches, dizziness, shortness of breath, chest pain, abdominal pain, bleeding, fevers, or worsening of medical condition. Patient was counseled about treatment plan, medications, possible side effects, patientverbalized understanding. All questions were answered to the best of my ability. This discharge took greater then 30 minutes in planning, reviewing documentation, counseling the patient, and discussing with other team members." Visit Coding OBGYN Date of Service: Jul 07, 2025 Billing Provider: SANJUANITA HUTTON DO TRAINING DEVELOPMENT SPECIALIST Common Visit Codes: 25932-[id number] OBS CARE (HIGH) TRAINING DEVELOPMENT SPECIALIST Procedure Codes: 15456-80- NON-STRESS TEST SANJUANITA HUTTON DO Jul 08, 2025 14:08
== END 2025-07-07 09:45 | disposition home or self-care (01) ==
LOC: LDRP 08:05
PROVIDERS: ADMIT Obstetrics & Gynecology; ATTEND Obstetrics & Gynecology
DX: O26.643 Intrahepatic cholestasis of pregnancy, third trimester (principal); K83.1 Obstruction of bile duct; Z3A.36 36 weeks gestation of pregnancy; Z98.890 Other specified postprocedural states; Z79.899 Other long term (current) drug therapy
CPT/HCPCS: 36415; 76818; 80053; 81002; 85025; 94760; G0378; 59025; 76819

== ENCOUNTER 2025-07-10 05:07 | Inpatient (IN) | payer BC, OTHER ==
[~2025-07-10] VITALS: Ht 165.1 cm; Wt 90.7 kg
[2025-07-10] MEDS ORDERED: TERBUTALINE SULFATE 1 MG/ML 1ML VIAL SC PRN ×2 (05:30→11:15)
[2025-07-10] MEDS ORDERED: NALBUPHINE HCL 10 MG/1ml INJECTION IV PRN (05:30)
[2025-07-10] MEDS ORDERED: FAMOTIDINE (10MG/ML) 2ML VL IV PRN (05:30)
[2025-07-10] MEDS ORDERED: ONDANSETRON HCL 4 MG/2 ML VIAL IV PRN (05:30)
[2025-07-10] MEDS: LACTATED RINGER'S 1,000 ML IV SCH (05:51)
[2025-07-10 06:28] LABS: Hematocrit 31.0 % (36.0-46.0)
[2025-07-10 06:30] LABS: Hemoglobin 10.0 g/dL (12.2-16.2); Mean Corpuscular Hemoglobin 24.5 pg (28.0-32.0); Mean Corpuscular Volume 75.9 fL (80.0-100.0); Nucleated Red Blood Cells % 0.1 %
[2025-07-10] MEDS: URSODIOL 300 MG CAP PO SCH (06:30)
[2025-07-10] MEDS: DERMOPLAST 60ML BOTTLE TOP PRN (06:31)
[2025-07-10] MEDS: WITCH HAZEL-GLYCERIN PAD TOP PRN (06:31)
[2025-07-10] MEDS: PHISODERM TOP SOLN 240ML BTL TOP PRN (06:31)
[2025-07-10] MEDS: URSODIOL 300 MG CAP ONE (06:32)
[2025-07-10 06:42] LABS: Urine Protein, UAD TRACE (Negative)
[2025-07-10 06:44] LABS: Amphetamine Screen, Urine Neg (NEGATIVE); Barbiturate Scree,Urine Neg (NEGATIVE); Benzodiazephine Screen, Urine Neg (NEGATIVE); Cocaine Screen, Urine Neg (NEGATIVE)
[2025-07-10 06:45] LABS: Cannabinoid Screen, Urine Neg (NEGATIVE); Opiate Scree,Urine Neg (NEGATIVE); Phencyclidine Screen, Urine Neg (NEGATIVE)
[2025-07-10 06:46] LABS: Alanine Aminotransferase 10 U/L (7-40); Albumin 3.5 g/dL (3.2-4.8); Anion Gap 10 (5-15); Bilirubin, Total 0.4 mg/dL (0.2-1.0); Calcium 8.9 mg/dL (8.7-10.4); Carbon Dioxide 23 mmol/L (20-31); Sodium 141 mmol/L (136-145)
[2025-07-10 06:47] LABS: Alkaline Phosphatase 141 U/L (46-116); BUN/Creatinine Ratio 11.6 (10.0-20.0); Blood Urea Nitrogen < 5 mg/dL (9-23); Chloride 108 mmol/L (98-107); Glucose 111 mg/dL (74-106); Potassium 3.4 mmol/L (3.5-5.1); Total Protein 5.5 g/dL (5.7-8.2)
[2025-07-10 06:48] LABS: INR 0.95 (0.9-1.15); Partial Thromboplastin Time 25.6 SEC (24.5-34.5); Prothrombin Time 10.1 sec (9.3-11.8)
--- NOTE | 2025-07-10 06:58 | DVHHP ---
ADMIT DATE: 07/10/2025 CHIEF COMPLAINT: Here for induction of labor due to cholestasis of . HISTORY OF PRESENT ILLNESS: The patient is a 25-year-old 2, para 1 with EDC 08/01, estimated gestational age of 37 weeks, admitted for induction of labor due to cholestasis of . The patient has been itching despite Actigall, which was increased to 3 times a day. PAST MEDICAL HISTORY: None. PAST SURGICAL HISTORY: None. SOCIAL HISTORY: None. FAMILY HISTORY: None. OBSTETRIC AND GYNECOLOGIC HISTORY: One vaginal delivery. REVIEW OF SYSTEMS: Consistent with HPI. PHYSICAL EXAMINATION: VITAL SIGNS: Stable, afebrile. HEENT: Within normal limits. CARDIOVASCULAR: Regular rate and rhythm. LUNGS: Clear to auscultation. BREASTS: Symmetrical, no masses. ABDOMEN: Gravid. Positive heart. PELVIC: External genitalia within normal limits. Vagina normal. Cervix 2 cm, 60%, -2. EXTREMITIES: No clubbing, cyanosis, or edema. IMPRESSION: Intrauterine at 37 weeks, for induction of labor due to cholestasis of . PLAN: Expectant vaginal delivery. Informed consent was obtained. Risks and complications of induction discussed with the patient. The patient had an estimated weight of 6 pounds 11 ounces. All her options, including primary were discussed with the patient. The patient wishes to proceed with trial of vaginal delivery. DO JAMES Kendrick/CHARLOTTE TID: [id number] RECEIPT: [id number]
[2025-07-10] MEDS ORDERED: URSODIOL 300 MG CAP PO SCH ×2 (07:00→14:00)
--- NOTE | 2025-07-10 07:21 | DVHPN2 ---
Chief Complaints Patient reports: No new complaints Nursing reports: No new complaints Objective Medications Current Medications Medications (Trade) Dose Ordered Sig/Adam Route PRN Reason Start Time Stop Time Status Last Admin Benzocaine (Dermoplast) 1 applic PRN PRN TOP PERINEAL AREA DISCOMFORT 07/10/25 05:30 07/10/25 06:31 Famotidine (Pepcid Injection) 40 mg DAILY PRN IV FOR STOMACH DISTRESS 07/10/25 05:30 Lactated Ringer's 1,000 ml @ 125 mls/hr Q8H IV 07/10/25 05:30 07/10/25 05:51 Lidocaine HCl (Xylocaine) 20 ml ONCE PRN IJ PERINEAL AREA DISCOMFORT 07/10/25 05:30 Misoprostol (Cytotec) 50 mcg Q4HPRN PRN PO CERVICAL RIPENING 07/10/25 06:00 07/10/25 06:36 Nalbuphine HCl (Nubain) 10 mg Q4HP PRN IV MODERATE PAIN (4-6 PAIN SCALE) 07/10/25 05:30 Ondansetron HCl (Zofran) 4 mg Q6HPRN PRN IV NAUSEA / VOMITING 07/10/25 05:30 Penicillin G Potassium [id number] units/Dextrose 50 ml @ 100 mls/hr Q4H IV 07/10/25 09:30 Sodium Lauryl Sulfate (Phisoderm) 240 ml PRN PRN TOP PERINEAL AREA DISCOMFORT 07/10/25 05:30 07/10/25 06:31 Terbutaline Sulfate (Brethine Inj) 0.25 mg ONCE PRN SC Uterine tachysystole 07/10/25 05:30 Ursodiol (Actigall) 300 mg TID PO 07/10/25 06:30 Ursodiol (Actigall) 300 mg TID PO 07/10/25 07:00 UNV Witch Dora (Tucks) 1 pad PRN PRN TOP PERINEAL AREA DISCOMFORT 07/10/25 05:30 07/10/25 06:31 Others ve-3cm/60/-2 Studies Laboratory Tests 07/10/25 06:08 Test 07/10/25 06:08 Range/Units Serum Glucose 111 H 74-106 mg/dL Ass/Plan Assessment iol for cholestasis Plan rec one cytotec then start pitocin may have epidural Visit Coding OBGYN Date of Service: Jul 10, 2025 Billing Provider: SANJUANITA HUTTON DO POLICY WRITER Common Visit Codes: [id number] INP/OBS CARE (HIGH) POLICY WRITER Procedure Codes: 39716-GJQ.SURG: W/FIMBRIOPLASTY, 22728-99- NON- STRESS TEST SANJUANITA HUTTON DO Jul 10, 2025 07:21
--- NOTE | 2025-07-10 09:00 | DVHPN2 ---
Chief Complaints Patient reports: No new complaints Nursing reports: No new complaints Objective Medications Current Medications Medications (Trade) Dose Ordered Sig/Adam Route PRN Reason Start Time Stop Time Status Last Admin Benzocaine (Dermoplast) 1 applic PRN PRN TOP PERINEAL AREA DISCOMFORT 07/10/25 05:30 07/10/25 06:31 Famotidine (Pepcid Injection) 40 mg DAILY PRN IV FOR STOMACH DISTRESS 07/10/25 05:30 Lactated Ringer's 1,000 ml @ 125 mls/hr Q8H IV 07/10/25 05:30 07/10/25 05:51 Lidocaine HCl (Xylocaine) 20 ml ONCE PRN IJ PERINEAL AREA DISCOMFORT 07/10/25 05:30 Misoprostol (Cytotec) 50 mcg Q4HPRN PRN PO CERVICAL RIPENING 07/10/25 06:00 07/10/25 06:36 Nalbuphine HCl (Nubain) 10 mg Q4HP PRN IV MODERATE PAIN (4-6 PAIN SCALE) 07/10/25 05:30 Ondansetron HCl (Zofran) 4 mg Q6HPRN PRN IV NAUSEA / VOMITING 07/10/25 05:30 Penicillin G Potassium [id number] units/Dextrose 50 ml @ 100 mls/hr Q4H IV 07/10/25 09:30 Sodium Lauryl Sulfate (Phisoderm) 240 ml PRN PRN TOP PERINEAL AREA DISCOMFORT 07/10/25 05:30 07/10/25 06:31 Terbutaline Sulfate (Brethine Inj) 0.25 mg ONCE PRN SC Uterine tachysystole 07/10/25 05:30 Ursodiol (Actigall) 300 mg TID PO 07/10/25 06:30 Ursodiol (Actigall) 300 mg TID PO 07/10/25 07:00 UNV Witch Dora (Tucks) 1 pad PRN PRN TOP PERINEAL AREA DISCOMFORT 07/10/25 05:30 07/10/25 06:31 Others PELVIC-UNCHANGED Studies Laboratory Tests 07/10/25 06:08 Test 07/10/25 06:08 Range/Units Serum Glucose 111 H 74-106 mg/dL Ass/Plan Assessment iol for cholestasis Plan REC ONE CYTOTEC DESIRES EPIDURAL WILLSTART PITOCIN AFTER EPIDURAL Visit Coding OBGYN Date of Service: Jul 10, 2025 Billing Provider: SANJUANITA HUTTON DO COLLEGE OR UNIVERSITY DEPARTMENT HEAD Common Visit Codes: [id number]-[id number] INP/OBS CARE (HIGH) COLLEGE OR UNIVERSITY DEPARTMENT HEAD Procedure Codes: 32974-23- NON-STRESS TEST SANJUANITA HUTTON DO Jul 10, 2025 09:00
[2025-07-10] MEDS ORDERED: NALOXONE HCL 0.4 MG/ML VIAL IV ONE (09:15)
[2025-07-10] MEDS: FAMOTIDINE (10MG/ML) 2ML VL IV ONE (11:48)
--- NOTE | 2025-07-10 12:03 | EPIDURAL ---
Anesthesia Procedural Note - Epidural Informed consent obtained?: Yes Medication Administered: Fentanyl 100 mcg Sterile prept drape: Yes Spinal level of insertion: L4-L5 Test dose of lidocaine & Epine: Negative Infusion started: Yes Start time: 11:30 End time: 11:50 Procedure description Procedure description: Called for labor analgesia. Patient examined, chart reviewed and history taken. Patient is here for induction of labor, requesting epidural. Informed consent for CSE obtained at 1130. Sitting position, sterile prep and drape. Time out done. L4-5 space infiltrated with 1% lido. Epidural needle placed with PALLAVI at 5cm. 25G spinal needle +clear CSF. 15mcg fentanyl given IT. Epidural catheter secured at 11cm. Aspiration and test dose (3cc 1.5% lido with epi) negative. 85mcg fentanyl given via epidural. Patient reports good pain relief. 0.2% ropivacaine infusion started at 1150. Will follow as needed. EZ JENSEN MD Jul 10, 2025 12:03
[2025-07-10] MEDS: FAMOTIDINE (10MG/ML) 2ML VL IV SCH (12:32)
[2025-07-10] MEDS: diphenhdrAMINE HCL 50 MG/1 ML VL IV PRN (12:33)
[2025-07-10] MEDS: fentaNYL CITRATE 100 MCG/2 ML VL IV ONE ×2 (12:33→23:00)
[2025-07-10] MEDS: ROPIVACAINE HCL 100 ML ONE ×2 (12:35→20:27)
[2025-07-10] MEDS: LACT. RINGERS/OXYTOCIN 20UNITS 1,000 ML IV SCH (13:34)
[2025-07-10] MEDS: PENICILLIN G POT 5MIL/D5 50ML 50 ML IV ONE (17:47)
--- NOTE | 2025-07-10 20:58 | DVHPN2 ---
OB Labor Progress Note Date and Time Seen Date Seen: Jul 10, 2025 Time Seen: 20:15 Subjective Patient reports: Other (feels cramping in pelvic area) Subjective Comment 25yo admitted for IOL for ICP and macrosomia, denies any UC pain, feels light cramps in pelvic area, has epidural, pitocin in progress, EFM x2, denies headache, dizziness or epigastric pain Objective Vital Signs VSS see CPN Monitoring Method Monitoring Method: External Heart Rate Heart Rate Baseline: 145 Heart Rate Variability: Moderate Presence of FHR Accelerations: Yes Presence of FHR Decelerations: No Changes in Trends of Patterns: No Are all 5 Components of the FH: Yes Contractions Contractions Frequency: Other (1-3/10) Duration of Contraction: 70 Contractions Intensity: Moderate Contractions Resting Tone: Relaxed Membranes Membranes: Intact Vaginal Exam Vag Exam Deferred: No Vaginal Exam Dilation: 5 Vaginal Exam Effacement: 60 Vaginal Exam Station: -2 Vaginal Exam Presentation: VTX Vaginal Exam Show: None Medications Medications - Pitocin: Yes Medication - Epidural: Yes Medication - Other PCN for GBS prophylaxis Lab Results Lab Results Vital Signs Date Time Temp Pulse Resp B/P (MAP) Pulse Ox O2 Delivery O2 Flow Rate FiO2 07/10/25 12:33 136/65 Current Medications Medications (Trade) Dose Ordered Sig/Adam Start Time Stop Time Status Last Admin Dose Admin Lactated Ringer's 1,000 ml @ 125 mls/hr Q8H 07/10/25 05:30 07/10/25 05:51 125 MLS/HR Nalbuphine HCl (Nubain) 10 mg Q4HP PRN 07/10/25 05:30 Penicillin G Potassium 50 ml @ 100 mls/hr ONCE ONCE 07/10/25 05:30 07/10/25 05:59 DC 07/10/25 17:47 100 MLS/HR Penicillin G Potassium [id number] units/Dextrose 50 ml @ 100 mls/hr Q4H 07/10/25 09:30 Porsche John (Tucks) 1 pad PRN PRN 07/10/25 05:30 07/10/25 06:31 1 PAD Sodium Lauryl Sulfate (Phisoderm) 240 ml PRN PRN 07/10/25 05:30 07/10/25 06:31 240 ML Benzocaine (Dermoplast) 1 applic PRN PRN 07/10/25 05:30 07/10/25 06:31 1 APPLIC Lidocaine HCl (Xylocaine) 20 ml ONCE PRN 07/10/25 05:30 Ondansetron HCl (Zofran) 4 mg Q6HPRN PRN 07/10/25 05:30 Famotidine (Pepcid Injection) 40 mg DAILY PRN 07/10/25 05:30 07/10/25 15:00 DC Terbutaline Sulfate (Brethine Inj) 0.25 mg ONCE PRN 07/10/25 05:30 Oxytocin 500 ml @ 999 mls/hr Q31M ONCE 07/10/25 05:30 07/10/25 06:00 DC Oxytocin 500 ml @ 125 mls/hr Q4H ONCE 07/10/25 06:00 07/10/25 09:59 DC Misoprostol (Cytotec) 50 mcg Q4HPRN PRN 07/10/25 06:00 07/10/25 06:36 50 MCG Ursodiol (Actigall) 300 mg TID 07/10/25 14:00 07/10/25 06:23 DC Ursodiol (Actigall) 300 mg TID 07/10/25 06:30 07/10/25 16:14 300 MG Naloxone HCl (Narcan) 0.2 mg PRN ONCE 07/10/25 09:15 07/10/25 09:19 DC Ephedrine Sulfate (ePHEDrine SULFATE) 10 mg PRN ONCE 07/10/25 09:15 07/10/25 09:19 DC Fentanyl Citrate 100 mcg ONCE ONCE 07/10/25 09:15 07/10/25 09:19 DC 07/10/25 12:33 100 MCG Oxytocin 1,000 ml @ 6 ml/hr Q24H 07/10/25 11:15 07/10/25 13:34 6 ML/HR Terbutaline Sulfate (Brethine Inj) 0.25 mg ONCE PRN 07/10/25 11:15 Famotidine (Pepcid Injection) 20 mg Q12HR 07/10/25 22:00 Future Hold 07/10/25 12:32 20 MG Diphenhydramine HCl (Benadryl Injection) 25 mg Q6HP PRN 07/10/25 12:00 07/10/25 12:33 25 MG Laboratory Tests Test 07/10/25 06:30 07/10/25 06:08 07/10/25 05:30 Range/Units Urine Opiates Screen Neg NEGATIVE Urine Fentanyl Screen Neg NEGATIVE Urine Barbiturates Screen Neg NEGATIVE Urine Phencyclidine Screen Neg NEGATIVE Urine Amphetamines Screen Neg NEGATIVE Urine Benzodiazepines Screen Neg NEGATIVE Urine Cocaine Screen Neg NEGATIVE Urine Cannabinoids Screen Neg NEGATIVE White Blood Count 7.6 4.4-10.8 10^3/uL Red Blood Count 4.08 4.0-5.20 10^6/uL Hemoglobin 10.0 L 12.2-16.2 g/dL Hematocrit 31.0 L 36.0-46.0 % Mean Corpuscular Volume 75.9 L 80.0-100.0 fL Mean Corpuscular Hemoglobin 24.5 L 28.0-32.0 pg Mean Corpuscular Hemoglobin Concent 32.3 32.0-36.0 g/dL Red Cell Distribution Width 22.9 H 11.8-14.3 % Platelet Count 222 140-450 10^3/uL Mean Platelet Volume 9.2 6.9-10.8 fL Neutrophils (%) (Auto) 66.1 37.0-80.0 % Lymphocytes (%) (Auto) 25.0 10.0-50.0 % Monocytes (%) (Auto) 7.5 0.0-12.0 % Eosinophils (%) (Auto) 1.1 0.0-7.0 % Basophils (%) (Auto) 0.3 0.0-2.0 % Neutrophils # (Auto) 5.1 1.6-8.6 10 ^3/uL Lymphocytes # (Auto) 1.9 0.4-5.4 10 ^3/uL Monocytes # (Auto) 0.6 0-1.3 10 ^3/uL Eosinophils # (Auto) 0.1 0-0.8 10 ^3/uL Basophils # (Auto) 0 0-0.2 10 ^3/uL Nucleated Red Blood Cells 0.1 % Prothrombin Time 10.1 9.3-11.8 sec Prothrombin Time INR 0.95 0.9-1.15 Activated Partial Thromboplast Time 25.6 24.5-34.5 SEC Sodium Level 141 136-145 mmol/L Potassium Level 3.4 L 3.5-5.1 mmol/L Chloride Level 108 H 98-107 mmol/L Carbon Dioxide Level 23 20-31 mmol/L Anion Gap 10 5-15 Blood Urea Nitrogen < 5 L 9-23 mg/dL Creatinine 0.43 L 0.550-1.02 mg/dL Glomerular Filtration Rate Calc 137 >90 mL/min BUN/Creatinine Ratio 11.6 10.0-20.0 Serum Glucose 111 H 74-106 mg/dL Calcium Level 8.9 8.7-10.4 mg/dL Total Bilirubin 0.4 0.2-1.0 mg/dL Aspartate Amino Transferase (AST) 17 13-40 U/L Alanine Aminotransferase (ALT) 10 7-40 U/L Alkaline Phosphatase 141 H 46-116 U/L Total Protein 5.5 L 5.7-8.2 g/dL Albumin 3.5 3.2-4.8 g/dL Treponema pallidum Antibody Non-reactive Negative Hepatitis C Antibody Negative Negative Urine Color Light-brown Yellow Urine Clarity Ex.turbid Clear Urine pH 7.0 5.0-9.0 Urine Specific [place] 1.007 1.001-1.035 Urine Protein Trace H Negative Urine Ketones Negative Negative Urine Blood Negative Negative /uL Urine Nitrite Negative Negative Urine Bilirubin Negative Negative Urine Urobilinogen Normal Negative mg/dL Urine Leukocyte Esterase 3+ Negative /uL Urine RBC 4 0 - 4 /hpf Urine Microscopic WBC 147 H 0-5 /HPF Urine Squamous Epithelial Cells Many <5 /hpf Urine Bacteria Many H None Seen /hpf Urine Glucose Normal Normal mg/dL Assessment Assessment A: 22yo IUP @ 36.6wk IOL for ICP and macrosomia GBS pos Cat I EFM Intact membranes Plan Plan P: Continue to titrate pitocin PRN Continuos monitoring Intrauterine resuscitation as needed Frequent position changes to facilitate descent Anticipate Plan discussed with: Patient, Spouse Visit Coding OBGYN Date of Service: Jul 10, 2025 Billing Provider: REBEKAH SOUZA CNM SPRAY PAINTING MACHINE OPERATOR Common Visit Codes: [id number] INP/OBS CARE(HIGH) ADRIEL SAENZ Jul 10, 2025 20:57
[2025-07-10] MEDS: PENICILLIN G POTASSIUM 2,500,000 UNITS in D5W 5% 50 ML IV SCH (22:02)
[2025-07-10] MEDS: LIDOCAINE HCL 2 %PF INJ 10ML AMP IJ ONE (23:00)
--- NOTE | 2025-07-11 02:09 | DVHPN2 ---
OB Labor Progress Note Date and Time Seen Date Seen: Jul 11, 2025 Time Seen: 01:45 Subjective Patient reports: Feels better Subjective Comment 25 yo , received bolus epidural and feels better Objective Vital Signs VSS Monitoring Method Monitoring Method: External Heart Rate Heart Rate Baseline: 140 Heart Rate Variability: Moderate Presence of FHR Accelerations: Yes Presence of FHR Decelerations: No Changes in Trends of Patterns: No Are all 5 Components of the FH: Yes Contractions Contractions Frequency: Other (1-2/10) Duration of Contraction: 70 Contractions Intensity: Moderate Contractions Resting Tone: Relaxed Membranes Membranes: Ruptured Amniotic Fluid Color: Clear, Bloody Vaginal Exam Vag Exam Deferred: No Vaginal Exam Dilation: 6 Vaginal Exam Effacement: 70 Vaginal Exam Station: -2 Vaginal Exam Presentation: VTX Vaginal Exam Show: Moderate Medications Medications - Pitocin: Yes Medication - Epidural: Yes (epdural bolus given) Medication - Other s/p PO cytotec Lab Results Lab Results Vital Signs Date Time Temp Pulse Resp B/P (MAP) Pulse Ox O2 Delivery O2 Flow Rate FiO2 07/10/25 12:33 136/65 Current Medications Medications (Trade) Dose Ordered Sig/Adam Start Time Stop Time Status Last Admin Dose Admin Lactated Ringer's 1,000 ml @ 125 mls/hr Q8H 07/10/25 05:30 07/10/25 05:51 125 MLS/HR Nalbuphine HCl (Nubain) 10 mg Q4HP PRN 07/10/25 05:30 Penicillin G Potassium 50 ml @ 100 mls/hr ONCE ONCE 07/10/25 05:30 07/10/25 05:59 DC 07/10/25 17:47 100 MLS/HR Penicillin G Potassium [id number] units/Dextrose 50 ml @ 100 mls/hr Q4H 07/10/25 09:30 07/11/25 01:50 100 MLS/HR Witch Dora (Tucks) 1 pad PRN PRN 07/10/25 05:30 07/10/25 06:31 1 PAD Sodium Lauryl Sulfate (Phisoderm) 240 ml PRN PRN 07/10/25 05:30 07/10/25 06:31 240 ML Benzocaine (Dermoplast) 1 applic PRN PRN 07/10/25 05:30 07/10/25 06:31 1 APPLIC Lidocaine HCl (Xylocaine) 20 ml ONCE PRN 07/10/25 05:30 Ondansetron HCl (Zofran) 4 mg Q6HPRN PRN 07/10/25 05:30 Famotidine (Pepcid Injection) 40 mg DAILY PRN 07/10/25 05:30 07/10/25 15:00 DC Terbutaline Sulfate (Brethine Inj) 0.25 mg ONCE PRN 07/10/25 05:30 Oxytocin 500 ml @ 999 mls/hr Q31M ONCE 07/10/25 05:30 07/10/25 06:00 DC Oxytocin 500 ml @ 125 mls/hr Q4H ONCE 07/10/25 06:00 07/10/25 09:59 DC Misoprostol (Cytotec) 50 mcg Q4HPRN PRN 07/10/25 06:00 07/10/25 06:36 50 MCG Ursodiol (Actigall) 300 mg TID 07/10/25 14:00 07/10/25 06:23 DC Ursodiol (Actigall) 300 mg TID 07/10/25 06:30 07/10/25 22:02 300 MG Naloxone HCl (Narcan) 0.2 mg PRN ONCE 07/10/25 09:15 07/10/25 09:19 DC Ephedrine Sulfate (ePHEDrine SULFATE) 10 mg PRN ONCE 07/10/25 09:15 07/10/25 09:19 DC Fentanyl Citrate 100 mcg ONCE ONCE 07/10/25 09:15 07/10/25 09:19 DC 07/10/25 12:33 100 MCG Oxytocin 1,000 ml @ 6 ml/hr Q24H 07/10/25 11:15 07/10/25 13:34 6 ML/HR Terbutaline Sulfate (Brethine Inj) 0.25 mg ONCE PRN 07/10/25 11:15 Famotidine (Pepcid Injection) 20 mg Q12HR 07/10/25 22:00 Hold 07/10/25 12:32 20 MG Diphenhydramine HCl (Benadryl Injection) 25 mg Q6HP PRN 07/10/25 12:00 07/10/25 12:33 25 MG Fentanyl Citrate 100 mcg ONCE ONCE 07/10/25 22:45 07/10/25 22:47 DC Lidocaine HCl (Xylocaine-Pf 2% Injection) 1 ml ONCE ONCE 07/10/25 22:45 07/10/25 22:47 DC Laboratory Tests Test 07/10/25 06:30 07/10/25 06:08 07/10/25 05:30 Range/Units Urine Opiates Screen Neg NEGATIVE Urine Fentanyl Screen Neg NEGATIVE Urine Barbiturates Screen Neg NEGATIVE Urine Phencyclidine Screen Neg NEGATIVE Urine Amphetamines Screen Neg NEGATIVE Urine Benzodiazepines Screen Neg NEGATIVE Urine Cocaine Screen Neg NEGATIVE Urine Cannabinoids Screen Neg NEGATIVE White Blood Count 7.6 4.4-10.8 10^3/uL Red Blood Count 4.08 4.0-5.20 10^6/uL Hemoglobin 10.0 L 12.2-16.2 g/dL Hematocrit 31.0 L 36.0-46.0 % Mean Corpuscular Volume 75.9 L 80.0-100.0 fL Mean Corpuscular Hemoglobin 24.5 L 28.0-32.0 pg Mean Corpuscular Hemoglobin Concent 32.3 32.0-36.0 g/dL Red Cell Distribution Width 22.9 H 11.8-14.3 % Platelet Count 222 140-450 10^3/uL Mean Platelet Volume 9.2 6.9-10.8 fL Neutrophils (%) (Auto) 66.1 37.0-80.0 % Lymphocytes (%) (Auto) 25.0 10.0-50.0 % Monocytes (%) (Auto) 7.5 0.0-12.0 % Eosinophils (%) (Auto) 1.1 0.0-7.0 % Basophils (%) (Auto) 0.3 0.0-2.0 % Neutrophils # (Auto) 5.1 1.6-8.6 10 ^3/uL Lymphocytes # (Auto) 1.9 0.4-5.4 10 ^3/uL Monocytes # (Auto) 0.6 0-1.3 10 ^3/uL Eosinophils # (Auto) 0.1 0-0.8 10 ^3/uL Basophils # (Auto) 0 0-0.2 10 ^3/uL Nucleated Red Blood Cells 0.1 % Prothrombin Time 10.1 9.3-11.8 sec Prothrombin Time INR 0.95 0.9-1.15 Activated Partial Thromboplast Time 25.6 24.5-34.5 SEC Sodium Level 141 136-145 mmol/L Potassium Level 3.4 L 3.5-5.1 mmol/L Chloride Level 108 H 98-107 mmol/L Carbon Dioxide Level 23 20-31 mmol/L Anion Gap 10 5-15 Blood Urea Nitrogen < 5 L 9-23 mg/dL Creatinine 0.43 L 0.550-1.02 mg/dL Glomerular Filtration Rate Calc 137 >90 mL/min BUN/Creatinine Ratio 11.6 10.0-20.0 Serum Glucose 111 H 74-106 mg/dL Calcium Level 8.9 8.7-10.4 mg/dL Total Bilirubin 0.4 0.2-1.0 mg/dL Aspartate Amino Transferase (AST) 17 13-40 U/L Alanine Aminotransferase (ALT) 10 7-40 U/L Alkaline Phosphatase 141 H 46-116 U/L Total Protein 5.5 L 5.7-8.2 g/dL Albumin 3.5 3.2-4.8 g/dL Treponema pallidum Antibody Non-reactive Negative Hepatitis C Antibody Negative Negative Urine Color Light-brown Yellow Urine Clarity Ex.turbid Clear Urine pH 7.0 5.0-9.0 Urine Specific [place] 1.007 1.001-1.035 Urine Protein Trace H Negative Urine Ketones Negative Negative Urine Blood Negative Negative /uL Urine Nitrite Negative Negative Urine Bilirubin Negative Negative Urine Urobilinogen Normal Negative mg/dL Urine Leukocyte Esterase 3+ Negative /uL Urine RBC 4 0 - 4 /hpf Urine Microscopic WBC 147 H 0-5 /HPF Urine Squamous Epithelial Cells Many <5 /hpf Urine Bacteria Many H None Seen /hpf Urine Glucose Normal Normal mg/dL Assessment Assessment A: 25 yo IUP @ 37wk IOL for ICP and LGA Anemia in GBS positive Artificial rupture of membranes Cat I EFM Plan Plan P: continue to titrate pitocin Intrauterine resuscitation PRN Frequent position changes Limit SVE Pain mgmt PRN Anticipate Plan discussed with: Patient, Spouse Visit Coding OBGYN Date of Service: Jul 11, 2025 Billing Provider: REBEKAH SOUZA CNM MORTGAGE CLOSING CLERK Common Visit Codes: [id number] INP/OBS CARE(HIGH) ADRIEL SAENZ Jul 11, 2025 02:09
[2025-07-11] MEDS: LACT. RINGERS/OXYTOCIN 20UNITS 500 ML IV ONE ×2 (03:52→04:09)
[2025-07-11] MEDS ORDERED: ONDANSETRON ODT 4 MG TAB PO PRN (04:00)
[2025-07-11] MEDS: IBUPROFEN 600 MG TAB PO PRN (04:47)
--- NOTE | 2025-07-11 04:56 | LDN2 ---
Labor and Delivery Note Date 07/11/25 Age 25 2 Para 2 AB 0 EDC 08/01/2025 EGA 37wk Diagnosis IOL for ICP and LGA Vaginal Delivery: VTX Vacuum Assisted: No Placenta: Spontaneous Sex: Male Weight 3725g Apgars 8/9 Nuchal Cord Transected: No Amniotic Fluid: Clear Anesthesia epidural Episiotomy: No Extension: No Repaired with 3-[address]-1 EBL 250ml Labs Laboratory Tests 01/19/25 10:04: Hepatitis B Surface Antigen Negative, HIV (1&2) Antibody Negative, Rubella Antibody Positive Blood Bank 07/10/25 06:08: Blood Type A POSITIVE Complications vaginal and right labial laceration Conditions stable Programming Director Somu Comments/Significant Med Chiara At 0333, this 25 yo now delivered a viable male infant by with apgars of 8/9. FARZANA presentation, infant placed on skin to skin on pt chest. Cord clamped after delayed cord clamping, cord blood sent. Pitocin bolus started. Placenta delivered spontaneously, anna. Placenta sent to pathology. Pt has epidural and was given lidocaine due to sharp pain on laceration site. Cervix and vagina inspected, vaginal and right labial laceration was noted which was repaired with 3-[address]-1 suture. Rectum intact. Fundus is firm at U, light lochia, QBL 250ml, VSS, count correct x 2. Patient and are stable and transferred to [facility]t care. Visit Coding OBGYN Date of Service: Jul 11, 2025 Billing Provider: REBEKAH SOUZA CNM REGULATORY ANALYST Common Visit Codes: [id number] INP/OBS CARE(HIGH) REGULATORY ANALYST Procedure Codes: [id number] DEL INCLUDING ADRIEL SAENZ Jul 11, 2025 04:56
[2025-07-11] MEDS: LIDOCAINE 2%HCL (LOCAL ANESTH.) INJ 20ML MDV IJ PRN (05:42)
[2025-07-11 07:00] VITALS: BP 111/55; PULSE 75; RESP 20; TEMP 98.4; O2SAT 95
[2025-07-11 11:00] VITALS: BP 118/60; PULSE 71; RESP 20; TEMP 98.3; O2SAT 95
[2025-07-11 15:00] VITALS: BP 120/58; PULSE 78; RESP 18; TEMP 98.3; O2SAT 78
[2025-07-11 19:30] VITALS: BP 104/55; PULSE 68; RESP 16; TEMP 98.1; O2SAT 99
[2025-07-11] MEDS: ACETAMINOPHEN 325 MG TAB PO PRN (22:55)
[2025-07-11 23:00] VITALS: BP 123/63; PULSE 76; RESP 16; TEMP 98.1; O2SAT 96
[2025-07-12 03:15] VITALS: BP 108/67; PULSE 64; RESP 16; TEMP 98; O2SAT 96
--- NOTE | 2025-07-12 06:11 | DVHDS2 ---
Discharge Summary Date of Admission Jul 10, 2025 at 05:07 Date of Discharge: Jul 12, 2025 Admitting Diagnosis Cholestasis of 37+ weeks Wounds: None Labs/Diagnostic Data: Laboratory Results Test 07/10/25 06:30 07/10/25 06:08 07/10/25 05:30 Urine Opiates Screen Neg (NEGATIVE) Urine Fentanyl Screen Neg (NEGATIVE) Urine Barbiturates Screen Neg (NEGATIVE) Urine Phencyclidine Screen Neg (NEGATIVE) Urine Amphetamines Screen Neg (NEGATIVE) Urine Benzodiazepines Screen Neg (NEGATIVE) Urine Cocaine Screen Neg (NEGATIVE) Urine Cannabinoids Screen Neg (NEGATIVE) White Blood Count 7.6 10^3/uL (4.4-10.8) Red Blood Count 4.08 10^6/uL (4.0-5.20) Hemoglobin 10.0 g/dL (12.2-16.2) Hematocrit 31.0 % (36.0-46.0) Mean Corpuscular Volume 75.9 fL (80.0-100.0) Mean Corpuscular Hemoglobin 24.5 pg (28.0-32.0) Mean Corpuscular Hemoglobin Concent 32.3 g/dL (32.0-36.0) Red Cell Distribution Width 22.9 % (11.8-14.3) Platelet Count 222 10^3/uL (140-450) Mean Platelet Volume 9.2 fL (6.9-10.8) Neutrophils (%) (Auto) 66.1 % (37.0-80.0) Lymphocytes (%) (Auto) 25.0 % (10.0-50.0) Monocytes (%) (Auto) 7.5 % (0.0-12.0) Eosinophils (%) (Auto) 1.1 % (0.0-7.0) Basophils (%) (Auto) 0.3 % (0.0-2.0) Neutrophils # (Auto) 5.1 10 ^3/uL (1.6-8.6) Lymphocytes # (Auto) 1.9 10 ^3/uL (0.4-5.4) Monocytes # (Auto) 0.6 10 ^3/uL (0-1.3) Eosinophils # (Auto) 0.1 10 ^3/uL (0-0.8) Basophils # (Auto) 0 10 ^3/uL (0-0.2) Nucleated Red Blood Cells 0.1 % Prothrombin Time 10.1 sec (9.3-11.8) Prothrombin Time INR 0.95 (0.9-1.15) Activated Partial Thromboplast Time 25.6 SEC (24.5-34.5) Sodium Level 141 mmol/L (136-145) Potassium Level 3.4 mmol/L (3.5-5.1) Chloride Level 108 mmol/L (98-107) Carbon Dioxide Level 23 mmol/L (20-31) Anion Gap 10 (5-15) Blood Urea Nitrogen < 5 mg/dL (9-23) Creatinine 0.43 mg/dL (0.550-1.02) Glomerular Filtration Rate Calc 137 mL/min (>90) BUN/Creatinine Ratio 11.6 (10.0-20.0) Serum Glucose 111 mg/dL (74-106) Calcium Level 8.9 mg/dL (8.7-10.4) Total Bilirubin 0.4 mg/dL (0.2-1.0) Aspartate Amino Transferase (AST) 17 U/L (13-40) Alanine Aminotransferase (ALT) 10 U/L (7-40) Alkaline Phosphatase 141 U/L (46-116) Total Protein 5.5 g/dL (5.7-8.2) Albumin 3.5 g/dL (3.2-4.8) Treponema pallidum Antibody Non-reactive (Negative) Hepatitis C Antibody Negative (Negative) Urine Color Light-brown (Yellow) Urine Clarity Ex.turbid (Clear) Urine pH 7.0 (5.0-9.0) Urine Specific [place] 1.007 (1.001-1.035) Urine Protein Trace (Negative) Urine Ketones Negative (Negative) Urine Blood Negative /uL (Negative) Urine Nitrite Negative (Negative) Urine Bilirubin Negative (Negative) Urine Urobilinogen Normal mg/dL (Negative) Urine Leukocyte Esterase 3+ /uL (Negative) Urine RBC 4 /hpf (0 - 4) Urine Microscopic WBC 147 /HPF (0-5) Urine Squamous Epithelial Cells Many /hpf (<5) Urine Bacteria Many /hpf (None Seen) Urine Glucose Normal mg/dL (Normal) Other Laboratory Tests 07/10/25 06:08 Brief Hx & Hospital Course: Patient delivered spontaneous vaginal delivery male Consults/Reason for consult None Operations or Procedures None Condition at Discharge: Good Final Diagnosis/Problems List stable improved cholestasis status score no sequela Discharge Disposition: Home Discharge Instruct/Medications Diet: Regular Activity: Light activity (Pelvic rest 6 weeks) Follow Up/Referral: Follow up primary OB physician 2 weeks or PRN Medications: None Scheduled Cephalexin (Keflex Capsule), 1 CAP PO QID Cephalexin (Keflex Capsule), 1 CAP PO QID Cephalexin Monohydrate (Cephalexin), 500 MG PO Q8HR Vit W/ Ferrous Fumara (Pnv Plus Multivi), 1 OR DAILY, (Reported) Scheduled PRN Acetaminophen (Acetaminophen), 500 MG PO Q4HP PRN Loperamide HCl (Loperamide HCl), 2 MG PO QID PRN Ondansetron Odt 4MG Tab (Zofran Po), 4 MG PO TID PRN Ondansetron Odt 4MG Tab (Zofran Po), 4 MG PO Q6HP PRN Ondansetron Odt 4MG Tab (Zofran Po), 4 MG PO Q8HPRN PRN Miscellaneous Medications Ursodiol (Ursodiol), 300 MG PO, (Reported) Discharge Statement: "Patient was advised to return to the ER or call 911 if any headaches, dizziness, shortness of breath, chest pain, abdominal pain, bleeding, fevers, or worsening of medical condition. Patient was counseled about treatment plan, medications, possible side effects, patientverbalized understanding. All questions were answered to the best of my ability. This discharge took greater then 30 minutes in planning, reviewing documentation, counseling the patient, and discussing with other team members." ASSESSMENT ASSESSMENT Assessment Visit Coding OBGYN Date of Service: Jul 12, 2025 Billing Provider: DAGO GONZALEZ DO REHABILITATION NURSE Common Visit Codes: [id number] INP/OBS CARE (HIGH) REHABILITATION NURSE Procedure Codes: [id number] DEL INCLUDING DAGO GONZALEZ DO Jul 12, 2025 06:11
[2025-07-12 07:09] VITALS: BP 116/59; PULSE 61; RESP 16; TEMP 97.8; O2SAT 97
[2025-07-12 11:29] VITALS: BP 110/60; PULSE 68; RESP 16; TEMP 97.7; O2SAT 97
== END 2025-07-12 14:21 | disposition home or self-care (01) | DRG 807 ==
LOC: LDRP 05:07
PROVIDERS: ADMIT Obstetrics & Gynecology; ATTEND Obstetrics & Gynecology
PROC: 10E0XZZ Delivery of Products of Conception, External Approach (ICD-10-PCS; principal; 2025-07-11)
PROC: 0UQMXZZ Repair Vulva, External Approach (ICD-10-PCS; 2025-07-11)
PROC: 3E0R3BZ Introduction of Anesthetic Agent into Spinal Canal, Percutaneous Approach (ICD-10-PCS; 2025-07-11)
PROC: 00HU33Z Insertion of Infusion Device into Spinal Canal, Percutaneous Approach (ICD-10-PCS; 2025-07-11)
DX: O26.643 Intrahepatic cholestasis of pregnancy, third trimester (principal); Z37.0 Single live birth; O99.02 Anemia complicating childbirth; O99.824 Streptococcus B carrier state complicating childbirth; Z3A.37 37 weeks gestation of pregnancy; K76.89 Other specified diseases of liver; O70.0 First degree perineal laceration during delivery; Q18.4 Macrostomia
CPT/HCPCS: 36415; 59025; 59409; 62282; 80053; 80307; 81001; 85025; 85610; 85730; 86780; 86803; 86850; 86900; 86901; 94760; 94762; 96360; 96361; 96365; 96366; 96374; 96375; G0378; J2540; J2590; J3490; J7060